=== PATIENT | female | born 2000 | race Caucasian/White ===

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

== ENCOUNTER 2019-08-05 13:14 | Inpatient (IN) | payer MEDICAID ==
[~2019-08-05] VITALS: Ht 160 cm; Wt 66.2 kg
[2019-08-05 18:46] VITALS: BP 126/69
[2019-08-05] MEDS ORDERED: IBUP-2271 PO (19:03)
[2019-08-05] MEDS ORDERED: HALO2 PO (19:03)
[2019-08-05 19:08] VITALS: BP 113/71
[2019-08-05] MEDS ORDERED: GuaiFENesin/D-METHORPHAN [SUGAR-FREE] 200-20MG/10 ML SYRUP UDCUP PO PRN (22:15)
[2019-08-05] MEDS ORDERED: ALBUTEROL SULFATE HFA 90 MCG/PUFF 8 GM INHALER IH PRN (22:15)
[2019-08-05] MEDS ORDERED: PETROLATUM,WHITE 28 GM JELLY TP PRN (22:15)
[2019-08-05] MEDS ORDERED: MAG HYDROX/AL HYDROX/SIMETH ES 30 ML SUSPENSION UDCUP PO PRN (22:15)
[2019-08-05] MEDS ORDERED: DOCUSATE SODIUM 100 MG CAPSULE PO PRN (22:15)
[2019-08-05] MEDS ORDERED: ACETAMINOPHEN 325 MG TABLET PO PRN (22:15)
[2019-08-05] MEDS ORDERED: ONDANSETRON HCL 4 MG TABLET PO PRN (22:15)
[2019-08-05] MEDS ORDERED: LOPERAMIDE HCL 2 MG CAPSULE PO PRN (22:15)
[2019-08-05] MEDS ORDERED: MAGNESIUM HYDROXIDE SUSPENSION 30 ML UDCUP PO PRN (22:15)
[2019-08-05] MEDS ORDERED: CloNIDine HCL 0.1 MG TABLET PO PRN (22:15)
[2019-08-06 01:25] VITALS: BP 145/92
[2019-08-06 08:02] LABS: BASOPHILS % (AUTO) 0.4 % (0.0-2.0); EOSINOPHILS % (AUTO) 4.1 % (1.0-6.0); HEMATOCRIT 32.6 % (36-46); HEMOGLOBIN 10.4 g/dL (12.0-16.0); LYMPHOCYTES # (AUTO) 2.1 K/uL (1.0-4.8); LYMPHOCYTES % (AUTO) 23.9 % (22.0-44.0); MEAN CORPUSCULAR HEMOGLOBIN 24.1 pg (26.0-34.0); MEAN CORPUSCULAR HGB CONC 31.9 G/dL (31.0-37.0); MEAN CORPUSCULAR VOLUME 76 fL (80-100); MONOCYTES # (AUTO) 0.6 K/uL (0.1-1.0); MONOCYTES % (AUTO) 7.1 % (2.0-9.0); NEUTROPHILS # (AUTO) 5.7 K/uL (1.8-7.7); NEUTROPHILS % (AUTO) 64.5 % (40.0-70.0); PLATELET COUNT (AUTO) 211 K/uL (150-450); RED BLOOD CELL COUNT(AUTO) 4.32 MIL/uL (4.00-5.20); RED CELL DISTRIBUTION WIDTH 19.2 % (11.5-14.5)
[2019-08-06 08:13] VITALS: BP 120/66
[2019-08-06 09:06] LABS: ALANINE AMINOTRANSFERASE 43 U/L (12-78); ALBUMIN 1.8 g/dL (3.4-5.0); ALKALINE PHOSPHATASE 183 U/L (46-116); ANION GAP 7 mmol/L (8-16); ASPARTATE AMINOTRANSFERASE 41 U/L (15-37); BILIRUBIN,TOTAL 0.2 mg/dL (0.1-1.0); CALCIUM, TOTAL 8.7 mg/dL (8.8-10.5); CARBON DIOXIDE 25 mmol/L (22-29); CHLORIDE 103 mmol/L (98-107); CHOL/HDL RATIO 2.8 (3.9-5.7); CHOLESTEROL 198 mg/dL (131-200); FREE T4 (FREE THYROXINE) 1.31 ng/dL (0.76-1.46); GLOMERULAR FILTR. RATE CALC > 60 mL/min (>60); GLUCOSE,RANDOM 73 mg/dL (70-110); HCG,QUANTITATIVE 1171 mIU/mL (0-6); HDL CHOLESTEROL 72 mg/dL (40-60); LDL CHOL (CALC.) 95 mg/dL (0-130); SODIUM SERUM 135 mmol/L (136-145); THYROID STIMULATING HORMONE 2.01 uIU/mL (0.36-3.74); TOTAL PROTEIN, SERUM 5.9 g/dL (6.4-8.2); TRIGLYCERIDES 155 mg/dL (15-150); UREA NITROGEN, BLOOD 7 mg/dL (7-18)
[2019-08-06] MEDS: OLANZapine 5 MG TABLET PO SCH ×2 (12:17→16:49)
[2019-08-06 16:04] VITALS: BP 121/73
[2019-08-07 05:33] VITALS: BP 120/64
[2019-08-07 08:15] VITALS: BP 125/65
[2019-08-07] MEDS: OLANZapine 5 MG TABLET PO SCH ×2 (08:57→16:32)
[2019-08-07 16:28] VITALS: BP 106/72
[2019-08-08 04:04] VITALS: BP 101/68
[2019-08-08] MEDS ORDERED: OLAN5TAB2 PO (06:24)
[2019-08-08 08:17] VITALS: BP 112/64
[2019-08-08] MEDS: OLANZapine 5 MG TABLET PO SCH ×2 (08:18→16:45)
[2019-08-08 16:34] VITALS: BP 116/70
[2019-08-09 05:20] VITALS: BP 105/68
[2019-08-09 08:11] VITALS: BP 120/69
[2019-08-09] MEDS: OLANZapine 5 MG TABLET PO SCH ×2 (08:44→17:23)
[2019-08-09 16:40] VITALS: BP 127/63
[2019-08-10 04:53] VITALS: BP 112/62
[2019-08-10] MEDS: OLANZapine 5 MG TABLET PO SCH ×2 (08:06→16:51)
[2019-08-10 08:17] VITALS: BP 114/71
[2019-08-10 16:08] VITALS: BP 119/64
[2019-08-11 05:14] VITALS: BP 101/62
[2019-08-11 08:07] VITALS: BP 118/66
[2019-08-11] MEDS: OLANZapine 5 MG TABLET PO SCH ×2 (08:49→16:47)
[2019-08-11] MEDS: LORazepam 2 MG TABLET PO PRN ×2 (15:10→20:52)
[2019-08-11 16:17] VITALS: BP 111/58
[2019-08-11] MEDS: ZOLPIDEM TARTRATE 10 MG TABLET PO PRN (20:03)
[2019-08-12 05:04] VITALS: BP 100/62
[2019-08-12 08:10] VITALS: BP 114/62
[2019-08-12] MEDS: OLANZapine 5 MG TABLET PO SCH ×2 (08:17→16:04)
[2019-08-12] MEDS: LORazepam 2 MG TABLET PO PRN (08:18)
[2019-08-12] MEDS ORDERED: HALOPERIDOL LACTATE 5 MG/ML VIAL IM ONE (10:45)
[2019-08-12] MEDS ORDERED: DiphenhydrAMINE HCL 50 MG/ML VIAL IM ONE (10:45)
[2019-08-12] MEDS ORDERED: LORazepam 2 MG/ML VIAL IM ONE (10:45)
[2019-08-12 14:00] VITALS: BP 100/68
[2019-08-13 05:30] VITALS: BP 104/66
[2019-08-13 08:09] LABS: APPEARANCE,URINE CLEAR (CLEAR); BILIRUBIN,URINE NEGATIVE (NEGATIVE); GLUCOSE, URINE (UA) NEGATIVE (NEGATIVE); KETONES,URINE NEGATIVE (NEGATIVE); LEUKOCYTE ESTERASE ,URINE NEGATIVE (NEGATIVE); NITRATE,URINE NEGATIVE (NEGATIVE); OCCULT BLOOD,URINE NEGATIVE (NEGATIVE); PROTEIN,URINE NEGATIVE (NEGATIVE)
[2019-08-13] MEDS: LORazepam 2 MG TABLET PO PRN (08:12)
[2019-08-13] MEDS: OLANZapine 5 MG TABLET PO SCH ×2 (08:12→16:30)
[2019-08-13 08:13] LABS: AMPHET/METH SCREEN,URINE NEGATIVE (NEGATIVE); BARBITURATE SCREEN, URINE NEGATIVE (NEGATIVE); BENZODIAZEPINES SCREEN,URINE NEGATIVE (NEGATIVE); CANNABINOID SCREEN,URINE NEGATIVE (NEGATIVE); COCAINE SCREEN,URINE NEGATIVE (NEGATIVE); METHADONE SCREEN, URINE NEGATIVE (NEGATIVE); OPIATE SCREEN,URINE NEGATIVE (NEGATIVE)
[2019-08-13 08:16] LABS: PHENCYCLIDINE SCREEN,URINE NEGATIVE (NEGATIVE)
[2019-08-13 08:18] VITALS: BP 117/88
[2019-08-13 16:03] VITALS: BP 130/59
[2019-08-14 05:20] VITALS: BP 115/66
[2019-08-14 08:02] VITALS: BP 121/66
[2019-08-14] MEDS: OLANZapine 5 MG TABLET PO SCH ×2 (08:09→16:44)
[2019-08-14 16:06] VITALS: BP 111/85
[2019-08-15] MEDS: ZOLPIDEM TARTRATE 10 MG TABLET PO PRN (02:47)
[2019-08-15 02:51] VITALS: BP 123/66
[2019-08-15] MEDS: OLANZapine 5 MG TABLET PO SCH ×2 (08:31→16:18)
[2019-08-15] MEDS: LORazepam 2 MG TABLET PO PRN ×2 (08:31→16:31)
[2019-08-15 08:35] VITALS: BP 126/56
[2019-08-15 16:14] VITALS: BP 110/64
[2019-08-16 08:10] VITALS: BP 111/60
[2019-08-16] MEDS: OLANZapine 5 MG TABLET PO SCH ×2 (08:37→16:21)
[2019-08-16 16:00] VITALS: BP 107/69
[2019-08-17 05:18] VITALS: BP 101/60
[2019-08-17 08:22] VITALS: BP 102/61
[2019-08-17] MEDS: OLANZapine 5 MG TABLET PO SCH ×2 (08:23→16:39)
[2019-08-17 11:00] VITALS: BP 110/74
[2019-08-17] MEDS: LORazepam 2 MG TABLET PO PRN (11:03)
[2019-08-17 16:44] VITALS: BP 109/60
[2019-08-17] MEDS: IBUPROFEN 400 MG TABLET PO PRN (17:32)
[2019-08-18 05:23] VITALS: BP 115/74
[2019-08-18 08:25] VITALS: BP 105/64
[2019-08-18] MEDS: OLANZapine 5 MG TABLET PO SCH ×2 (08:56→16:21)
[2019-08-18] MEDS: LORazepam 2 MG TABLET PO PRN (10:35)
[2019-08-18 16:28] VITALS: BP 111/57
[2019-08-19 06:19] VITALS: BP 108/62
[2019-08-19 08:03] VITALS: BP 109/54
[2019-08-19] MEDS: OLANZapine 5 MG TABLET PO SCH ×2 (08:26→18:10)
[2019-08-19 16:07] VITALS: BP 126/70
[2019-08-19] MEDS ORDERED: HALOPERIDOL LACTATE 5 MG/ML VIAL ONE (19:48)
[2019-08-19] MEDS ORDERED: LORazepam 2 MG/ML VIAL ONE (19:48)
[2019-08-19] MEDS ORDERED: DiphenhydrAMINE HCL 50 MG/ML VIAL ONE (19:48)
[2019-08-19] MEDS ORDERED: DiphenhydrAMINE HCL 50 MG/ML VIAL IM ONE (20:00)
[2019-08-19] MEDS ORDERED: HALOPERIDOL LACTATE 5 MG/ML VIAL IM ONE (20:00)
[2019-08-19] MEDS ORDERED: LORazepam 2 MG/ML VIAL IM ONE (20:00)
[2019-08-20 06:28] VITALS: BP 100/60
[2019-08-20 08:20] VITALS: BP 114/61
[2019-08-20] MEDS: LORazepam 2 MG TABLET PO PRN (08:41)
[2019-08-20] MEDS: OLANZapine 5 MG TABLET PO SCH ×2 (08:41→16:53)
[2019-08-20] MEDS: OMEGA-3/DHA/EPA/FISH OIL 1,000 MG CAPSULE PO SCH (14:11)
[2019-08-20 16:22] VITALS: BP_SYST 100; BP_SYST 114; BP_DIAS 61; BP_DIAS 65
[2019-08-21 05:01] VITALS: BP 100/63
[2019-08-21] MEDS: OLANZapine 5 MG TABLET PO SCH ×2 (08:16→16:17)
[2019-08-21] MEDS: OMEGA-3/DHA/EPA/FISH OIL 1,000 MG CAPSULE PO SCH (08:16)
[2019-08-21 08:23] VITALS: BP 106/63
[2019-08-21 09:25] VITALS: BP 114/72
[2019-08-21] MEDS: LORazepam 2 MG TABLET PO PRN (09:26)
[2019-08-21 16:24] VITALS: BP 105/65
[2019-08-22 04:10] VITALS: BP 101/60
[2019-08-22] MEDS: OMEGA-3/DHA/EPA/FISH OIL 1,000 MG CAPSULE PO SCH (08:11)
[2019-08-22] MEDS: OLANZapine 5 MG TABLET PO SCH ×2 (08:11→16:03)
[2019-08-22 08:23] VITALS: BP 121/61
[2019-08-22] MEDS: LORazepam 2 MG TABLET PO PRN (08:49)
[2019-08-22 16:00] VITALS: BP 103/61
[2019-08-23 05:16] VITALS: BP 100/65
[2019-08-23 08:09] VITALS: BP 112/77
[2019-08-23] MEDS: OLANZapine 5 MG TABLET PO SCH (08:11)
[2019-08-23] MEDS: OMEGA-3/DHA/EPA/FISH OIL 1,000 MG CAPSULE PO SCH (08:11)
[2019-08-23] MEDS: LORazepam 2 MG TABLET PO PRN ×2 (08:49→16:13)
[2019-08-23] MEDS: HALOPERIDOL 5 MG TABLET PO PRN (08:49)
[2019-08-23] MEDS ORDERED: HALOPERIDOL LACTATE 5 MG/ML VIAL IM ONE (09:00)
[2019-08-23] MEDS ORDERED: DiphenhydrAMINE HCL 50 MG/ML VIAL IM ONE (09:00)
[2019-08-23 09:37] VITALS: BP 106/80
[2019-08-23] MEDS: DIVALPROEX SODIUM 500 MG DR TABLET PO SCH (12:22)
[2019-08-23 16:02] VITALS: BP 119/63
[2019-08-23] MEDS: OLANZapine 10 MG TABLET PO SCH (16:13)
[2019-08-24 05:12] VITALS: BP 100/62
[2019-08-24 08:53] VITALS: BP 106/62
[2019-08-24] MEDS: LORazepam 2 MG TABLET PO PRN (09:19)
[2019-08-24] MEDS: OLANZapine 10 MG TABLET PO SCH ×2 (09:19→16:20)
[2019-08-24] MEDS: OMEGA-3/DHA/EPA/FISH OIL 1,000 MG CAPSULE PO SCH (09:19)
[2019-08-24] MEDS: DIVALPROEX SODIUM 500 MG DR TABLET PO SCH (09:19)
[2019-08-24 16:20] VITALS: BP 120/63
[2019-08-25 04:58] VITALS: BP 102/64
[2019-08-25 08:25] VITALS: BP 112/72
[2019-08-25] MEDS: OLANZapine 10 MG TABLET PO SCH ×2 (08:30→16:10)
[2019-08-25] MEDS: DIVALPROEX SODIUM 500 MG DR TABLET PO SCH (08:30)
[2019-08-25] MEDS: LORazepam 2 MG TABLET PO PRN (08:30)
[2019-08-25] MEDS: OMEGA-3/DHA/EPA/FISH OIL 1,000 MG CAPSULE PO SCH (08:30)
[2019-08-25] MEDS: HALOPERIDOL 5 MG TABLET PO PRN (09:07)
[2019-08-25 16:17] VITALS: BP 100/60
[2019-08-26 06:10] VITALS: BP 124/72
[2019-08-26] MEDS: OLANZapine 10 MG TABLET PO SCH ×2 (08:12→16:10)
[2019-08-26] MEDS: DIVALPROEX SODIUM 500 MG DR TABLET PO SCH (08:12)
[2019-08-26] MEDS: OMEGA-3/DHA/EPA/FISH OIL 1,000 MG CAPSULE PO SCH (08:12)
[2019-08-26 08:16] VITALS: BP 118/76
[2019-08-26] MEDS: LORazepam 2 MG TABLET PO PRN (12:16)
[2019-08-26 16:14] VITALS: BP 107/64
[2019-08-27 05:00] VITALS: BP 101/77
[2019-08-27 08:17] VITALS: BP 132/51
[2019-08-27] MEDS: OLANZapine 10 MG TABLET PO SCH ×2 (08:18→16:39)
[2019-08-27] MEDS: OMEGA-3/DHA/EPA/FISH OIL 1,000 MG CAPSULE PO SCH (08:18)
[2019-08-27] MEDS: DIVALPROEX SODIUM 500 MG DR TABLET PO SCH (08:18)
[2019-08-27] MEDS: LORazepam 2 MG TABLET PO PRN (08:19)
[2019-08-27] MEDS: HALOPERIDOL 5 MG TABLET PO PRN (08:34)
[2019-08-27] MEDS ORDERED: HALOPERIDOL LACTATE 5 MG/ML VIAL IM ONE (09:00)
[2019-08-27] MEDS ORDERED: DiphenhydrAMINE HCL 50 MG/ML VIAL IM ONE (09:00)
[2019-08-27 14:22] VITALS: BP 106/68
[2019-08-27 16:02] VITALS: BP 107/59
[2019-08-28 07:12] VITALS: BP 102/62
[2019-08-28] MEDS: OLANZapine 10 MG TABLET PO SCH ×2 (08:15→16:01)
[2019-08-28] MEDS: LORazepam 2 MG TABLET PO PRN ×3 (08:15→17:30)
[2019-08-28] MEDS: OMEGA-3/DHA/EPA/FISH OIL 1,000 MG CAPSULE PO SCH (08:15)
[2019-08-28] MEDS: DIVALPROEX SODIUM 500 MG DR TABLET PO SCH (08:16)
[2019-08-28] MEDS: NICOTINE 14 MG/24 HOUR PATCH TD PRN (08:56)
[2019-08-28 13:05] VITALS: BP 109/71
[2019-08-28 16:55] VITALS: BP 121/64
[2019-08-29 08:10] VITALS: BP 114/68
[2019-08-29] MEDS: LORazepam 2 MG TABLET PO PRN (08:20)
[2019-08-29] MEDS: DIVALPROEX SODIUM 500 MG DR TABLET PO SCH (08:20)
[2019-08-29] MEDS: NICOTINE 14 MG/24 HOUR PATCH TD PRN (08:20)
[2019-08-29] MEDS: OMEGA-3/DHA/EPA/FISH OIL 1,000 MG CAPSULE PO SCH (08:20)
[2019-08-29] MEDS: OLANZapine 10 MG TABLET PO SCH ×2 (08:20→16:12)
[2019-08-29] MEDS: HALOPERIDOL 5 MG TABLET PO PRN (09:03)
[2019-08-29 16:07] VITALS: BP 109/66
[2019-08-30 06:40] VITALS: BP 110/72
[2019-08-30 08:19] VITALS: BP 129/87
[2019-08-30] MEDS: DIVALPROEX SODIUM 500 MG DR TABLET PO SCH (08:26)
[2019-08-30] MEDS: OMEGA-3/DHA/EPA/FISH OIL 1,000 MG CAPSULE PO SCH (08:26)
[2019-08-30] MEDS: OLANZapine 10 MG TABLET PO SCH ×2 (08:26→16:58)
[2019-08-30] MEDS: LORazepam 2 MG TABLET PO PRN ×2 (08:26→16:58)
[2019-08-30] MEDS: HALOPERIDOL 5 MG TABLET PO PRN (09:28)
[2019-08-30 16:23] VITALS: BP 109/60
[2019-08-31 01:39] VITALS: BP 101/62
[2019-08-31] MEDS: OLANZapine 10 MG TABLET PO SCH ×2 (08:35→16:47)
[2019-08-31] MEDS: OMEGA-3/DHA/EPA/FISH OIL 1,000 MG CAPSULE PO SCH (08:35)
[2019-08-31] MEDS: LORazepam 2 MG TABLET PO PRN ×2 (08:35→18:04)
[2019-08-31] MEDS: DIVALPROEX SODIUM 500 MG DR TABLET PO SCH (08:35)
[2019-08-31 08:44] VITALS: BP 112/61
[2019-08-31] MEDS: HALOPERIDOL 5 MG TABLET PO PRN (09:01)
[2019-08-31 16:13] VITALS: BP 112/64
[2019-09-01 04:42] VITALS: BP 104/66
[2019-09-01 08:32] VITALS: BP 100/68
[2019-09-01] MEDS: OMEGA-3/DHA/EPA/FISH OIL 1,000 MG CAPSULE PO SCH (09:11)
[2019-09-01] MEDS: OLANZapine 10 MG TABLET PO SCH ×2 (09:11→16:45)
[2019-09-01] MEDS: LORazepam 2 MG TABLET PO PRN (09:11)
[2019-09-01] MEDS: DIVALPROEX SODIUM 500 MG DR TABLET PO SCH (09:11)
[2019-09-01 16:04] VITALS: BP 109/68
[2019-09-02 06:29] VITALS: BP 110/67
[2019-09-02] MEDS: OLANZapine 10 MG TABLET PO SCH ×2 (08:13→16:36)
[2019-09-02] MEDS: OMEGA-3/DHA/EPA/FISH OIL 1,000 MG CAPSULE PO SCH (08:13)
[2019-09-02] MEDS: DIVALPROEX SODIUM 500 MG DR TABLET PO SCH ×2 (08:13→21:00)
[2019-09-02] MEDS: LORazepam 2 MG TABLET PO PRN ×2 (08:14→16:36)
[2019-09-02 08:21] VITALS: BP 110/73
[2019-09-02 16:06] VITALS: BP 122/90
[2019-09-02] MEDS: HALOPERIDOL 5 MG TABLET PO PRN (16:36)
[2019-09-03 06:23] VITALS: BP 108/73
[2019-09-03] MEDS: DIVALPROEX SODIUM 500 MG DR TABLET PO SCH ×2 (08:08→20:56)
[2019-09-03] MEDS: HALOPERIDOL 5 MG TABLET PO PRN ×2 (08:08→16:26)
[2019-09-03] MEDS: LORazepam 2 MG TABLET PO PRN ×2 (08:08→16:26)
[2019-09-03] MEDS: OLANZapine 10 MG TABLET PO SCH ×2 (08:08→16:26)
[2019-09-03] MEDS: OMEGA-3/DHA/EPA/FISH OIL 1,000 MG CAPSULE PO SCH (08:08)
[2019-09-03 08:22] VITALS: BP 110/66
[2019-09-03 17:19] VITALS: BP 105/54
[2019-09-04 04:01] VITALS: BP 110/63
[2019-09-04] MEDS: LORazepam 2 MG TABLET PO PRN ×2 (07:59→16:26)
[2019-09-04] MEDS: OLANZapine 10 MG TABLET PO SCH ×2 (07:59→16:26)
[2019-09-04] MEDS: DIVALPROEX SODIUM 500 MG DR TABLET PO SCH ×2 (07:59→20:29)
[2019-09-04] MEDS: OMEGA-3/DHA/EPA/FISH OIL 1,000 MG CAPSULE PO SCH (08:00)
[2019-09-04] MEDS: HALOPERIDOL 5 MG TABLET PO PRN (08:42)
[2019-09-04 16:13] VITALS: BP 115/72
[2019-09-05 06:44] VITALS: BP 110/65
[2019-09-05 08:16] VITALS: BP 112/66
[2019-09-05] MEDS: OMEGA-3/DHA/EPA/FISH OIL 1,000 MG CAPSULE PO SCH (08:31)
[2019-09-05] MEDS: DIVALPROEX SODIUM 500 MG DR TABLET PO SCH ×2 (08:31→21:12)
[2019-09-05] MEDS: HALOPERIDOL 5 MG TABLET PO PRN ×2 (08:31→17:01)
[2019-09-05] MEDS: LORazepam 2 MG TABLET PO PRN ×2 (08:31→17:01)
[2019-09-05] MEDS: OLANZapine 10 MG TABLET PO SCH ×2 (08:31→17:01)
[2019-09-05 17:07] VITALS: BP 90/59
[2019-09-05 18:00] VITALS: BP 100/61
[2019-09-06 03:15] VITALS: BP 112/66
[2019-09-06 08:17] VITALS: BP 105/55
[2019-09-06] MEDS: OMEGA-3/DHA/EPA/FISH OIL 1,000 MG CAPSULE PO SCH (08:58)
[2019-09-06] MEDS: DIVALPROEX SODIUM 500 MG DR TABLET PO SCH ×2 (08:58→20:33)
[2019-09-06] MEDS: OLANZapine 10 MG TABLET PO SCH ×2 (08:58→16:44)
[2019-09-06] MEDS: LORazepam 2 MG TABLET PO PRN (09:03)
[2019-09-06 17:49] VITALS: BP 115/66
[2019-09-07 04:04] VITALS: BP 110/76
[2019-09-07 08:24] VITALS: BP 106/71
[2019-09-07] MEDS: DIVALPROEX SODIUM 500 MG DR TABLET PO SCH ×2 (08:31→21:41)
[2019-09-07] MEDS: LORazepam 2 MG TABLET PO PRN (08:31)
[2019-09-07] MEDS: OMEGA-3/DHA/EPA/FISH OIL 1,000 MG CAPSULE PO SCH (08:31)
[2019-09-07] MEDS: OLANZapine 10 MG TABLET PO SCH ×2 (08:31→17:10)
[2019-09-07 20:24] VITALS: BP 93/42
[2019-09-08 04:33] VITALS: BP 102/76
[2019-09-08 08:30] VITALS: BP 112/66
[2019-09-08] MEDS: OMEGA-3/DHA/EPA/FISH OIL 1,000 MG CAPSULE PO SCH (09:20)
[2019-09-08] MEDS: OLANZapine 10 MG TABLET PO SCH ×2 (09:20→16:42)
[2019-09-08] MEDS: DIVALPROEX SODIUM 500 MG DR TABLET PO SCH ×2 (09:21→20:45)
[2019-09-08] MEDS: LORazepam 2 MG TABLET PO PRN ×2 (09:21→16:43)
[2019-09-08] MEDS: HALOPERIDOL 5 MG TABLET PO PRN ×2 (10:20→16:42)
[2019-09-08 17:49] VITALS: BP 112/67
[2019-09-09 04:22] VITALS: BP 102/63
[2019-09-09 08:28] VITALS: BP 100/57
[2019-09-09] MEDS: DIVALPROEX SODIUM 500 MG DR TABLET PO SCH ×2 (08:38→20:19)
[2019-09-09] MEDS: LORazepam 2 MG TABLET PO PRN ×2 (08:38→17:31)
[2019-09-09] MEDS: OLANZapine 10 MG TABLET PO SCH ×2 (08:38→17:31)
[2019-09-09] MEDS: HALOPERIDOL 5 MG TABLET PO PRN ×2 (08:38→17:31)
[2019-09-09] MEDS: OMEGA-3/DHA/EPA/FISH OIL 1,000 MG CAPSULE PO SCH (08:38)
[2019-09-09 16:11] VITALS: BP 117/61
[2019-09-10 02:00] VITALS: BP 108/72
[2019-09-10 08:30] VITALS: BP 100/61
[2019-09-10] MEDS: OMEGA-3/DHA/EPA/FISH OIL 1,000 MG CAPSULE PO SCH (09:45)
[2019-09-10] MEDS: DIVALPROEX SODIUM 500 MG DR TABLET PO SCH ×2 (09:45→21:12)
[2019-09-10] MEDS: OLANZapine 10 MG TABLET PO SCH ×2 (09:45→17:00)
[2019-09-10] MEDS: HALOPERIDOL 5 MG TABLET PO PRN (09:47)
[2019-09-10 17:48] VITALS: BP 106/56
[2019-09-11 04:45] VITALS: BP 16/64
[2019-09-11] MEDS: OLANZapine 10 MG TABLET PO SCH ×2 (08:05→15:53)
[2019-09-11] MEDS: OMEGA-3/DHA/EPA/FISH OIL 1,000 MG CAPSULE PO SCH (08:05)
[2019-09-11] MEDS: DIVALPROEX SODIUM 500 MG DR TABLET PO SCH ×2 (08:06→20:38)
[2019-09-11] MEDS: LORazepam 2 MG TABLET PO PRN ×2 (08:06→15:53)
[2019-09-11] MEDS: HALOPERIDOL 5 MG TABLET PO PRN ×2 (08:06→15:53)
[2019-09-11 08:37] VITALS: BP 109/67
[2019-09-11 17:08] VITALS: BP 104/64
[2019-09-12 04:47] VITALS: BP 101/75
[2019-09-12] MEDS: OLANZapine 10 MG TABLET PO SCH ×2 (08:41→16:13)
[2019-09-12] MEDS: OMEGA-3/DHA/EPA/FISH OIL 1,000 MG CAPSULE PO SCH (08:41)
[2019-09-12] MEDS: DIVALPROEX SODIUM 500 MG DR TABLET PO SCH ×2 (08:41→21:04)
[2019-09-12 09:51] VITALS: BP 109/63
[2019-09-12 16:06] VITALS: BP 116/66
[2019-09-12] MEDS: LORazepam 2 MG TABLET PO PRN (16:13)
[2019-09-12] MEDS: HALOPERIDOL 5 MG TABLET PO PRN (16:13)
[2019-09-13 05:49] VITALS: BP 101/56
[2019-09-13 08:14] VITALS: BP 104/67
[2019-09-13] MEDS: OLANZapine 10 MG TABLET PO SCH ×2 (08:38→17:48)
[2019-09-13] MEDS: OMEGA-3/DHA/EPA/FISH OIL 1,000 MG CAPSULE PO SCH (08:38)
[2019-09-13] MEDS: HALOPERIDOL 5 MG TABLET PO PRN ×2 (08:38→17:49)
[2019-09-13] MEDS: DIVALPROEX SODIUM 500 MG DR TABLET PO SCH ×2 (08:38→20:17)
[2019-09-13] MEDS: LORazepam 2 MG TABLET PO PRN ×2 (08:39→17:49)
[2019-09-13 16:29] VITALS: BP 111/72
[2019-09-14 03:05] VITALS: BP 100/75
[2019-09-14 08:05] VITALS: BP 110/66
[2019-09-14] MEDS: DIVALPROEX SODIUM 500 MG DR TABLET PO SCH ×2 (09:08→20:19)
[2019-09-14] MEDS: OLANZapine 10 MG TABLET PO SCH ×2 (09:09→16:18)
[2019-09-14] MEDS: OMEGA-3/DHA/EPA/FISH OIL 1,000 MG CAPSULE PO SCH (09:09)
[2019-09-14] MEDS: HALOPERIDOL 5 MG TABLET PO PRN (09:09)
[2019-09-14] MEDS: LORazepam 2 MG TABLET PO PRN (09:09)
[2019-09-14 17:31] VITALS: BP 106/61
[2019-09-15 03:14] VITALS: BP 87/72
[2019-09-15] MEDS: DIVALPROEX SODIUM 500 MG DR TABLET PO SCH ×2 (08:02→20:19)
[2019-09-15] MEDS: OLANZapine 10 MG TABLET PO SCH ×2 (08:03→16:54)
[2019-09-15] MEDS: OMEGA-3/DHA/EPA/FISH OIL 1,000 MG CAPSULE PO SCH (08:03)
[2019-09-15] MEDS: ACETAMINOPHEN 325 MG TABLET PO PRN (08:04)
[2019-09-15 08:15] VITALS: BP 103/66
[2019-09-15 16:00] VITALS: BP 118/75
[2019-09-15] MEDS: HALOPERIDOL 5 MG TABLET PO PRN (17:55)
[2019-09-16 08:15] VITALS: BP 129/70
[2019-09-16] MEDS: DIVALPROEX SODIUM 500 MG DR TABLET PO SCH ×2 (08:24→20:18)
[2019-09-16] MEDS: OLANZapine 10 MG TABLET PO SCH ×2 (08:24→16:23)
[2019-09-16] MEDS: OMEGA-3/DHA/EPA/FISH OIL 1,000 MG CAPSULE PO SCH (08:24)
[2019-09-16 16:19] VITALS: BP 113/56
[2019-09-16] MEDS: IBUPROFEN 400 MG TABLET PO PRN (17:17)
[2019-09-16 17:18] VITALS: BP 120/72
[2019-09-17 05:19] VITALS: BP 108/72
[2019-09-17] MEDS: HALOPERIDOL 5 MG TABLET PO PRN ×2 (07:55→17:18)
[2019-09-17 08:09] VITALS: BP 101/63
[2019-09-17] MEDS: DIVALPROEX SODIUM 500 MG DR TABLET PO SCH ×2 (08:13→20:38)
[2019-09-17] MEDS: OMEGA-3/DHA/EPA/FISH OIL 1,000 MG CAPSULE PO SCH (08:13)
[2019-09-17] MEDS: OLANZapine 10 MG TABLET PO SCH ×2 (08:13→16:09)
[2019-09-17] MEDS: ACETAMINOPHEN 325 MG TABLET PO PRN (11:05)
[2019-09-17 16:10] VITALS: BP 125/92
[2019-09-17] MEDS ORDERED: LORazepam 2 MG TABLET PO ONE (18:15)
[2019-09-17] MEDS ORDERED: LORazepam 2 MG TABLET ONE (18:16)
[2019-09-18 01:15] VITALS: BP 112/76
[2019-09-18] MEDS: OMEGA-3/DHA/EPA/FISH OIL 1,000 MG CAPSULE PO SCH (08:12)
[2019-09-18] MEDS: DIVALPROEX SODIUM 500 MG DR TABLET PO SCH ×2 (08:12→20:44)
[2019-09-18] MEDS: OLANZapine 10 MG TABLET PO SCH ×2 (08:12→16:20)
[2019-09-18 08:15] VITALS: BP 102/56
[2019-09-18 17:08] VITALS: BP 118/69
[2019-09-18] MEDS: HALOPERIDOL 5 MG TABLET PO PRN (17:34)
[2019-09-19 04:39] VITALS: BP 105/62
[2019-09-19 08:18] VITALS: BP 112/63
[2019-09-19] MEDS: DIVALPROEX SODIUM 500 MG DR TABLET PO SCH (08:46)
[2019-09-19] MEDS: HALOPERIDOL 5 MG TABLET PO PRN (08:46)
[2019-09-19] MEDS: OMEGA-3/DHA/EPA/FISH OIL 1,000 MG CAPSULE PO SCH (08:46)
[2019-09-19] MEDS: OLANZapine 10 MG TABLET PO SCH (08:47)
[2019-09-19] MEDS ORDERED: DIVA-78 PO (14:35)
[2019-09-19] MEDS ORDERED: OMEG-135 PO (14:35)
[2019-09-19] MEDS ORDERED: OLAN10TA3 PO (14:35)
== END 2019-09-19 15:59 | disposition home or self-care (01) | DRG 750 ==
LOC: B3A 18:03
PROVIDERS: ADMIT Psychiatry & Neurology Psychiatry; ATTEND Psychiatry & Neurology Child & Adolescent Psychiatry
DX: F25.0 Schizoaffective disorder, bipolar type (principal); E87.1 Hypo-osmolality and hyponatremia; E78.5 Hyperlipidemia, unspecified; F10.10 Alcohol abuse, uncomplicated; G40.909 Epilepsy, unspecified, not intractable, without status epilepticus; Z91.19 Patient's noncompliance with other medical treatment and regimen; Z91.5 Personal history of self-harm
CPT/HCPCS: 80307; 83036; 84439; 84443; 87081; J1200; J1630; J2060

== ENCOUNTER 2019-10-01 03:00 | Inpatient (IN) | payer MEDICAID ==
[~2019-10-01 03:00] MED LIST: DIVA-78 PO; OLAN10TA3 PO; OMEG-135 PO
[2019-10-01] MEDS ORDERED: DiphenhydrAMINE HCL 50 MG/ML VIAL ONE ×2 (03:27→04:29)
[2019-10-01] MEDS ORDERED: HALOPERIDOL LACTATE 5 MG/ML VIAL ONE ×2 (03:27→04:29)
[2019-10-01] MEDS ORDERED: LORazepam 2 MG/ML VIAL ONE (03:28)
[2019-10-01] MEDS ORDERED: DiphenhydrAMINE HCL 50 MG/ML VIAL IM ONE ×2 (04:15→06:00)
[2019-10-01] MEDS ORDERED: HALOPERIDOL LACTATE 5 MG/ML VIAL IM ONE ×2 (04:15→04:30)
[2019-10-01] MEDS ORDERED: LORazepam 2 MG/ML VIAL IM ONE (04:15)
[2019-10-01] MEDS ORDERED: HALOPERIDOL LACTATE 5 MG/ML VIAL IVP ONE (06:00)
[2019-10-01 08:03] VITALS: BP 110/62
[2019-10-01] MEDS ORDERED: CloNIDine HCL 0.1 MG TABLET PO PRN (09:00)
[2019-10-01] MEDS ORDERED: GuaiFENesin/D-METHORPHAN [SUGAR-FREE] 200-20MG/10 ML SYRUP UDCUP PO PRN (09:00)
[2019-10-01] MEDS ORDERED: ACETAMINOPHEN 325 MG TABLET PO PRN (09:00)
[2019-10-01] MEDS ORDERED: DOCUSATE SODIUM 100 MG CAPSULE PO PRN (09:00)
[2019-10-01] MEDS ORDERED: IBUPROFEN 400 MG TABLET PO PRN (09:00)
[2019-10-01] MEDS ORDERED: MAG HYDROX/AL HYDROX/SIMETH ES 30 ML SUSPENSION UDCUP PO PRN (09:00)
[2019-10-01] MEDS ORDERED: PETROLATUM,WHITE 28 GM JELLY TP PRN (09:00)
[2019-10-01] MEDS ORDERED: LOPERAMIDE HCL 2 MG CAPSULE PO PRN (09:00)
[2019-10-01] MEDS ORDERED: MAGNESIUM HYDROXIDE SUSPENSION 30 ML UDCUP PO PRN (09:00)
[2019-10-01] MEDS ORDERED: ALBUTEROL SULFATE HFA 90 MCG/PUFF 8 GM INHALER IH PRN (09:00)
[2019-10-01] MEDS ORDERED: ONDANSETRON HCL 4 MG TABLET PO PRN (09:00)
[2019-10-01] MEDS: OMEGA-3/DHA/EPA/FISH OIL 1,000 MG CAPSULE PO SCH (09:22)
[2019-10-01] MEDS: OLANZapine 10 MG TABLET PO SCH ×2 (12:35→16:39)
[2019-10-01] MEDS: DIVALPROEX SODIUM 500 MG ER TABLET PO SCH ×2 (12:36→16:39)
[2019-10-01 18:52] VITALS: BP 97/57
[2019-10-02 03:13] VITALS: BP 101/62
[2019-10-02 08:14] VITALS: BP 112/69
[2019-10-02] MEDS: OMEGA-3/DHA/EPA/FISH OIL 1,000 MG CAPSULE PO SCH (08:46)
[2019-10-02] MEDS: OLANZapine 10 MG TABLET PO SCH ×2 (08:46→16:15)
[2019-10-02] MEDS: DIVALPROEX SODIUM 500 MG ER TABLET PO SCH ×2 (08:46→16:15)
[2019-10-02 16:05] VITALS: BP 106/75
[2019-10-03 04:59] VITALS: BP 99/50
[2019-10-03 08:12] VITALS: BP 109/71
[2019-10-03] MEDS: DIVALPROEX SODIUM 500 MG ER TABLET PO SCH ×2 (08:56→16:39)
[2019-10-03] MEDS: OLANZapine 10 MG TABLET PO SCH ×2 (08:56→16:39)
[2019-10-03] MEDS: OMEGA-3/DHA/EPA/FISH OIL 1,000 MG CAPSULE PO SCH (08:56)
[2019-10-04 02:25] VITALS: BP 100/65
[2019-10-04 08:00] VITALS: BP 101/64
[2019-10-04] MEDS: DIVALPROEX SODIUM 500 MG ER TABLET PO SCH ×2 (08:31→16:24)
[2019-10-04] MEDS: OMEGA-3/DHA/EPA/FISH OIL 1,000 MG CAPSULE PO SCH (08:31)
[2019-10-04] MEDS: OLANZapine 10 MG TABLET PO SCH ×2 (08:31→16:24)
[2019-10-04] MEDS: LORazepam 2 MG TABLET PO PRN (19:13)
[2019-10-04] MEDS: HALOPERIDOL 5 MG TABLET PO PRN (19:13)
[2019-10-04 21:29] VITALS: BP 100/60
[2019-10-05 02:36] VITALS: BP 101/63
[2019-10-05] MEDS: DIVALPROEX SODIUM 500 MG ER TABLET PO SCH ×2 (08:28→17:07)
[2019-10-05] MEDS: OLANZapine 10 MG TABLET PO SCH ×2 (08:28→17:07)
[2019-10-05] MEDS: OMEGA-3/DHA/EPA/FISH OIL 1,000 MG CAPSULE PO SCH (08:28)
[2019-10-05] MEDS: HALOPERIDOL 5 MG TABLET PO PRN (08:29)
[2019-10-05] MEDS: LORazepam 2 MG TABLET PO PRN (08:29)
[2019-10-05 16:14] VITALS: BP 104/71
[2019-10-06 03:49] VITALS: BP 100/73
[2019-10-06] MEDS: OLANZapine 10 MG TABLET PO SCH ×2 (08:23→17:03)
[2019-10-06] MEDS: OMEGA-3/DHA/EPA/FISH OIL 1,000 MG CAPSULE PO SCH (08:23)
[2019-10-06] MEDS: DIVALPROEX SODIUM 500 MG ER TABLET PO SCH ×2 (08:23→17:03)
[2019-10-06 13:04] VITALS: BP 100/60
[2019-10-06 16:01] VITALS: BP 98/50
[2019-10-07 02:43] VITALS: BP_SYST 101; BP_SYST 88; BP_DIAS 63
[2019-10-07] MEDS: DIVALPROEX SODIUM 500 MG ER TABLET PO SCH ×2 (08:10→16:20)
[2019-10-07] MEDS: OLANZapine 10 MG TABLET PO SCH ×2 (08:11→16:20)
[2019-10-07] MEDS: OMEGA-3/DHA/EPA/FISH OIL 1,000 MG CAPSULE PO SCH (08:11)
[2019-10-07 17:55] VITALS: BP 105/52
[2019-10-08 03:05] VITALS: BP 100/63
[2019-10-08 08:20] VITALS: BP 106/62
[2019-10-08] MEDS: DIVALPROEX SODIUM 500 MG ER TABLET PO SCH ×2 (08:27→16:23)
[2019-10-08] MEDS: OLANZapine 10 MG TABLET PO SCH ×2 (08:28→16:23)
[2019-10-08] MEDS: OMEGA-3/DHA/EPA/FISH OIL 1,000 MG CAPSULE PO SCH (08:28)
[2019-10-08 16:02] VITALS: BP 100/60
[2019-10-09 05:23] VITALS: BP 102/62
[2019-10-09] MEDS: DIVALPROEX SODIUM 500 MG ER TABLET PO SCH ×2 (08:38→16:52)
[2019-10-09] MEDS: OLANZapine 10 MG TABLET PO SCH ×2 (08:38→16:52)
[2019-10-09] MEDS: OMEGA-3/DHA/EPA/FISH OIL 1,000 MG CAPSULE PO SCH (08:38)
[2019-10-09 09:07] VITALS: BP 107/58
[2019-10-09 16:34] VITALS: BP 105/60
[2019-10-09] MEDS: LORazepam 2 MG TABLET PO PRN (16:52)
[2019-10-10 01:52] VITALS: BP 101/60
[2019-10-10 08:16] VITALS: BP 120/81
[2019-10-10] MEDS: OLANZapine 10 MG TABLET PO SCH ×2 (08:21→16:15)
[2019-10-10] MEDS: DIVALPROEX SODIUM 500 MG ER TABLET PO SCH ×2 (08:21→16:15)
[2019-10-10] MEDS: OMEGA-3/DHA/EPA/FISH OIL 1,000 MG CAPSULE PO SCH (08:21)
[2019-10-10] MEDS: LORazepam 2 MG TABLET PO PRN (10:35)
[2019-10-10 16:01] VITALS: BP 103/62
[2019-10-10] MEDS: NICOTINE 14 MG/24 HOUR PATCH TD PRN (17:05)
[2019-10-10] MEDS: ZOLPIDEM TARTRATE 10 MG TABLET PO PRN (23:58)
[2019-10-11 01:46] VITALS: BP 127/80
[2019-10-11 08:25] VITALS: BP 107/60
[2019-10-11] MEDS: OMEGA-3/DHA/EPA/FISH OIL 1,000 MG CAPSULE PO SCH (08:29)
[2019-10-11] MEDS: DIVALPROEX SODIUM 500 MG ER TABLET PO SCH ×2 (08:29→16:05)
[2019-10-11] MEDS: OLANZapine 10 MG TABLET PO SCH ×2 (08:29→16:05)
[2019-10-11] MEDS: LORazepam 2 MG TABLET PO PRN ×2 (10:25→16:06)
[2019-10-11 16:08] VITALS: BP 110/67
[2019-10-11] MEDS: FluPHENAZine HCL 5 MG TABLET PO SCH (17:02)
[2019-10-12 03:01] VITALS: BP 100/75
[2019-10-12] MEDS: OLANZapine 10 MG TABLET PO SCH ×2 (08:27→17:02)
[2019-10-12] MEDS: FluPHENAZine HCL 5 MG TABLET PO SCH ×2 (08:27→17:02)
[2019-10-12] MEDS: OMEGA-3/DHA/EPA/FISH OIL 1,000 MG CAPSULE PO SCH (08:27)
[2019-10-12] MEDS: DIVALPROEX SODIUM 500 MG ER TABLET PO SCH ×2 (08:27→17:02)
[2019-10-12 16:03] VITALS: BP 126/64
[2019-10-12] MEDS ORDERED: FLUP5 PO (19:49)
[2019-10-12] MEDS: ZOLPIDEM TARTRATE 10 MG TABLET PO PRN (20:50)
[2019-10-13 02:10] VITALS: BP 122/66
[2019-10-13 08:06] VITALS: BP 114/63
[2019-10-13] MEDS: OLANZapine 10 MG TABLET PO SCH ×2 (08:06→17:04)
[2019-10-13] MEDS: DIVALPROEX SODIUM 500 MG ER TABLET PO SCH ×2 (08:06→17:04)
[2019-10-13] MEDS: OMEGA-3/DHA/EPA/FISH OIL 1,000 MG CAPSULE PO SCH (08:06)
[2019-10-13] MEDS: FluPHENAZine HCL 5 MG TABLET PO SCH ×2 (08:06→17:04)
[2019-10-13 16:11] VITALS: BP 102/66
[2019-10-14 00:31] VITALS: BP 113/92
[2019-10-14] MEDS: OLANZapine 10 MG TABLET PO SCH ×2 (08:00→17:06)
[2019-10-14] MEDS: FluPHENAZine HCL 5 MG TABLET PO SCH ×2 (08:00→17:06)
[2019-10-14] MEDS: DIVALPROEX SODIUM 500 MG ER TABLET PO SCH ×2 (08:01→17:06)
[2019-10-14] MEDS: OMEGA-3/DHA/EPA/FISH OIL 1,000 MG CAPSULE PO SCH (08:01)
[2019-10-14 08:05] VITALS: BP 124/62
[2019-10-14 08:15] LABS: BASOPHILS % (AUTO) 0.6 % (0.0-2.0); EOSINOPHILS % (AUTO) 3.8 % (1.0-6.0); HEMATOCRIT 36.6 % (36-46); HEMOGLOBIN 11.7 g/dL (12.0-16.0); LYMPHOCYTES # (AUTO) 2.3 K/uL (1.0-4.8); LYMPHOCYTES % (AUTO) 39.1 % (22.0-44.0); MEAN CORPUSCULAR HEMOGLOBIN 25.8 pg (26.0-34.0); MEAN CORPUSCULAR HGB CONC 32.1 G/dL (31.0-37.0); MEAN CORPUSCULAR VOLUME 80 fL (80-100); MONOCYTES # (AUTO) 0.5 K/uL (0.1-1.0); MONOCYTES % (AUTO) 8.4 % (2.0-9.0); NEUTROPHILS # (AUTO) 2.9 K/uL (1.8-7.7); NEUTROPHILS % (AUTO) 48.1 % (40.0-70.0); PLATELET COUNT (AUTO) 188 K/uL (150-450); RED BLOOD CELL COUNT(AUTO) 4.56 MIL/uL (4.00-5.20); RED CELL DISTRIBUTION WIDTH 18.5 % (11.5-14.5)
[2019-10-14 08:35] LABS: HEMOGLOBIN A1C 4.3 % (3.8-5.6)
[2019-10-14 08:45] LABS: ALANINE AMINOTRANSFERASE 35 U/L (12-78); ALBUMIN 3.1 g/dL (3.4-5.0); ALKALINE PHOSPHATASE 106 U/L (46-116); ANION GAP 12 mmol/L (8-16); ASPARTATE AMINOTRANSFERASE 19 U/L (15-37); BILIRUBIN,TOTAL 0.2 mg/dL (0.1-1.0); CARBON DIOXIDE 23 mmol/L (22-29); CHLORIDE 105 mmol/L (98-107); CHOL/HDL RATIO 3.3 (3.9-5.7); CHOLESTEROL 154 mg/dL (131-200); CREATININE 0.63 mg/dL (0.60-1.30); GLOMERULAR FILTR. RATE CALC > 60 mL/min (>60); GLUCOSE,RANDOM 73 mg/dL (70-110); HDL CHOLESTEROL 47 mg/dL (40-60); LDL CHOL (CALC.) 83 mg/dL (0-130); POTASSIUM 4.3 mmol/L (3.5-5.1); SODIUM SERUM 140 mmol/L (136-145); THYROID STIMULATING HORMONE 1.71 uIU/mL (0.36-3.74); TOTAL PROTEIN, SERUM 6.8 g/dL (6.4-8.2); TRIGLYCERIDES 122 mg/dL (15-150); UREA NITROGEN, BLOOD 17 mg/dL (7-18)
[2019-10-14 16:31] VITALS: BP 120/58
[2019-10-15 06:55] VITALS: BP 119/64
[2019-10-15 08:07] VITALS: BP 100/61
[2019-10-15] MEDS: OLANZapine 10 MG TABLET PO SCH ×2 (08:21→16:57)
[2019-10-15] MEDS: OMEGA-3/DHA/EPA/FISH OIL 1,000 MG CAPSULE PO SCH (08:21)
[2019-10-15] MEDS: DIVALPROEX SODIUM 500 MG ER TABLET PO SCH ×2 (08:21→16:57)
[2019-10-15] MEDS: FluPHENAZine HCL 5 MG TABLET PO SCH ×2 (08:21→16:57)
[2019-10-15 16:26] VITALS: BP 107/67
[2019-10-16 03:23] VITALS: BP 100/62
[2019-10-16 08:14] VITALS: BP 106/71
[2019-10-16] MEDS: OLANZapine 10 MG TABLET PO SCH ×2 (08:15→16:23)
[2019-10-16] MEDS: FluPHENAZine HCL 5 MG TABLET PO SCH ×2 (08:15→16:23)
[2019-10-16] MEDS: OMEGA-3/DHA/EPA/FISH OIL 1,000 MG CAPSULE PO SCH (08:15)
[2019-10-16] MEDS: DIVALPROEX SODIUM 500 MG ER TABLET PO SCH ×2 (08:15→16:23)
[2019-10-16 16:33] VITALS: BP 101/60
[2019-10-16] MEDS: LORazepam 2 MG TABLET PO PRN (17:21)
[2019-10-17 04:07] VITALS: BP 120/63
[2019-10-17] MEDS: OLANZapine 10 MG TABLET PO SCH ×2 (08:16→16:34)
[2019-10-17] MEDS: FluPHENAZine HCL 5 MG TABLET PO SCH ×2 (08:16→16:34)
[2019-10-17] MEDS: OMEGA-3/DHA/EPA/FISH OIL 1,000 MG CAPSULE PO SCH (08:16)
[2019-10-17] MEDS: DIVALPROEX SODIUM 500 MG ER TABLET PO SCH ×2 (08:16→16:34)
[2019-10-17 08:24] VITALS: BP 109/64
[2019-10-17 16:11] VITALS: BP 116/71
[2019-10-18 04:08] VITALS: BP 106/71
[2019-10-18] MEDS: DIVALPROEX SODIUM 500 MG ER TABLET PO SCH ×2 (08:19→16:24)
[2019-10-18] MEDS: OLANZapine 10 MG TABLET PO SCH ×2 (08:19→16:24)
[2019-10-18] MEDS: OMEGA-3/DHA/EPA/FISH OIL 1,000 MG CAPSULE PO SCH (08:19)
[2019-10-18] MEDS: FluPHENAZine HCL 5 MG TABLET PO SCH ×2 (08:19→16:24)
[2019-10-18 08:49] VITALS: BP 111/52
[2019-10-18 16:15] VITALS: BP 105/60
[2019-10-19 05:53] VITALS: BP 108/64
[2019-10-19 08:00] VITALS: BP 101/60
[2019-10-19] MEDS: OMEGA-3/DHA/EPA/FISH OIL 1,000 MG CAPSULE PO SCH (08:21)
[2019-10-19] MEDS: FluPHENAZine HCL 5 MG TABLET PO SCH ×2 (08:21→16:18)
[2019-10-19] MEDS: OLANZapine 10 MG TABLET PO SCH ×2 (08:21→16:18)
[2019-10-19] MEDS: DIVALPROEX SODIUM 500 MG ER TABLET PO SCH ×2 (08:21→16:18)
[2019-10-19] MEDS: LORazepam 2 MG TABLET PO PRN (13:31)
[2019-10-19 19:36] VITALS: BP 105/63
[2019-10-20 03:26] VITALS: BP 110/72
[2019-10-20] MEDS: OLANZapine 10 MG TABLET PO SCH ×2 (08:18→16:43)
[2019-10-20] MEDS: DIVALPROEX SODIUM 500 MG ER TABLET PO SCH ×2 (08:18→16:43)
[2019-10-20] MEDS: OMEGA-3/DHA/EPA/FISH OIL 1,000 MG CAPSULE PO SCH (08:18)
[2019-10-20] MEDS: FluPHENAZine HCL 5 MG TABLET PO SCH ×2 (08:18→16:43)
[2019-10-20 08:26] VITALS: BP 116/72
[2019-10-20 16:16] VITALS: BP 106/65
[2019-10-21 01:48] VITALS: BP 102/68
[2019-10-21] MEDS: OLANZapine 10 MG TABLET PO SCH ×2 (08:13→17:25)
[2019-10-21] MEDS: DIVALPROEX SODIUM 500 MG ER TABLET PO SCH ×2 (08:13→17:25)
[2019-10-21] MEDS: FluPHENAZine HCL 5 MG TABLET PO SCH ×2 (08:13→17:25)
[2019-10-21] MEDS: OMEGA-3/DHA/EPA/FISH OIL 1,000 MG CAPSULE PO SCH (08:13)
[2019-10-21 16:29] VITALS: BP 107/65
[2019-10-22 03:59] VITALS: BP 102/68
[2019-10-22] MEDS: DIVALPROEX SODIUM 500 MG ER TABLET PO SCH ×2 (08:30→16:34)
[2019-10-22] MEDS: FluPHENAZine HCL 5 MG TABLET PO SCH (08:30)
[2019-10-22] MEDS: OMEGA-3/DHA/EPA/FISH OIL 1,000 MG CAPSULE PO SCH (08:30)
[2019-10-22] MEDS: OLANZapine 10 MG TABLET PO SCH ×2 (08:30→16:34)
[2019-10-22 08:48] VITALS: BP 119/74
[2019-10-22 16:27] VITALS: BP 104/65
[2019-10-22] MEDS: FluPHENAZine HCL 10 MG TABLET PO SCH (16:34)
[2019-10-22 18:03] VITALS: BP 106/68
[2019-10-23 04:37] VITALS: BP 108/63
[2019-10-23 08:23] VITALS: BP 111/76
[2019-10-23] MEDS: OMEGA-3/DHA/EPA/FISH OIL 1,000 MG CAPSULE PO SCH (08:44)
[2019-10-23] MEDS: FluPHENAZine HCL 10 MG TABLET PO SCH ×2 (08:44→17:01)
[2019-10-23] MEDS: DIVALPROEX SODIUM 500 MG ER TABLET PO SCH ×2 (08:44→17:01)
[2019-10-23] MEDS: OLANZapine 10 MG TABLET PO SCH ×2 (08:44→17:01)
[2019-10-23 16:44] VITALS: BP 110/70
[2019-10-23] MEDS: ZOLPIDEM TARTRATE 10 MG TABLET PO PRN (21:16)
[2019-10-24 05:03] VITALS: BP 107/57
[2019-10-24] MEDS: DIVALPROEX SODIUM 500 MG ER TABLET PO SCH ×2 (08:09→15:56)
[2019-10-24] MEDS: FluPHENAZine HCL 10 MG TABLET PO SCH ×2 (08:09→15:56)
[2019-10-24] MEDS: OMEGA-3/DHA/EPA/FISH OIL 1,000 MG CAPSULE PO SCH (08:09)
[2019-10-24] MEDS: OLANZapine 10 MG TABLET PO SCH ×2 (08:09→15:56)
[2019-10-24 08:16] VITALS: BP 116/71
[2019-10-24 16:20] VITALS: BP 108/61
[2019-10-24] MEDS: LORazepam 2 MG TABLET PO PRN (19:58)
[2019-10-25 02:19] VITALS: BP 100/66
[2019-10-25 08:25] VITALS: BP 104/56
[2019-10-25] MEDS: OMEGA-3/DHA/EPA/FISH OIL 1,000 MG CAPSULE PO SCH (08:45)
[2019-10-25] MEDS: OLANZapine 10 MG TABLET PO SCH ×2 (08:45→16:28)
[2019-10-25] MEDS: DIVALPROEX SODIUM 500 MG ER TABLET PO SCH ×2 (08:45→16:29)
[2019-10-25] MEDS: FluPHENAZine HCL 10 MG TABLET PO SCH ×2 (08:45→16:28)
[2019-10-25 16:26] VITALS: BP 120/69
[2019-10-26 01:57] VITALS: BP 124/74
[2019-10-26 08:07] VITALS: BP 107/64
[2019-10-26] MEDS: FluPHENAZine HCL 10 MG TABLET PO SCH ×2 (08:22→16:34)
[2019-10-26] MEDS: OMEGA-3/DHA/EPA/FISH OIL 1,000 MG CAPSULE PO SCH (08:22)
[2019-10-26] MEDS: OLANZapine 10 MG TABLET PO SCH ×2 (08:22→16:34)
[2019-10-26] MEDS: DIVALPROEX SODIUM 500 MG ER TABLET PO SCH ×2 (08:22→16:34)
[2019-10-26 16:45] VITALS: BP 110/62
[2019-10-27 04:54] VITALS: BP 124/76
[2019-10-27] MEDS: FluPHENAZine HCL 10 MG TABLET PO SCH ×2 (08:23→16:51)
[2019-10-27] MEDS: OLANZapine 10 MG TABLET PO SCH ×2 (08:23→16:51)
[2019-10-27] MEDS: DIVALPROEX SODIUM 500 MG ER TABLET PO SCH ×2 (08:23→16:51)
[2019-10-27] MEDS: OMEGA-3/DHA/EPA/FISH OIL 1,000 MG CAPSULE PO SCH (08:23)
[2019-10-27 08:48] VITALS: BP 128/66
[2019-10-27 16:12] VITALS: BP 113/68
[2019-10-28 06:41] VITALS: BP 104/58
[2019-10-28 08:17] VITALS: BP 114/63
[2019-10-28] MEDS: OLANZapine 10 MG TABLET PO SCH ×2 (08:50→16:33)
[2019-10-28] MEDS: OMEGA-3/DHA/EPA/FISH OIL 1,000 MG CAPSULE PO SCH (08:50)
[2019-10-28] MEDS: DIVALPROEX SODIUM 500 MG ER TABLET PO SCH ×2 (08:50→16:33)
[2019-10-28] MEDS: FluPHENAZine HCL 10 MG TABLET PO SCH ×2 (08:50→16:33)
[2019-10-28 16:09] VITALS: BP 117/59
[2019-10-29 05:55] VITALS: BP 120/60
[2019-10-29] MEDS: FluPHENAZine HCL 10 MG TABLET PO SCH ×2 (08:12→16:15)
[2019-10-29] MEDS: OMEGA-3/DHA/EPA/FISH OIL 1,000 MG CAPSULE PO SCH (08:12)
[2019-10-29] MEDS: DIVALPROEX SODIUM 500 MG ER TABLET PO SCH ×2 (08:12→16:15)
[2019-10-29] MEDS: OLANZapine 10 MG TABLET PO SCH ×2 (08:12→16:15)
[2019-10-29 08:24] VITALS: BP 119/66
[2019-10-29 17:25] VITALS: BP 114/57
[2019-10-30 01:42] VITALS: BP 116/64
[2019-10-30] MEDS: OMEGA-3/DHA/EPA/FISH OIL 1,000 MG CAPSULE PO SCH (08:01)
[2019-10-30] MEDS: FluPHENAZine HCL 10 MG TABLET PO SCH ×2 (08:01→16:10)
[2019-10-30] MEDS: OLANZapine 10 MG TABLET PO SCH ×2 (08:01→16:10)
[2019-10-30] MEDS: DIVALPROEX SODIUM 500 MG ER TABLET PO SCH ×2 (08:01→16:10)
[2019-10-30 08:12] VITALS: BP 100/59
[2019-10-30 17:20] VITALS: BP 104/64
[2019-10-31 02:24] VITALS: BP 100/68
[2019-10-31] MEDS: DIVALPROEX SODIUM 500 MG ER TABLET PO SCH ×2 (08:14→16:19)
[2019-10-31] MEDS: OMEGA-3/DHA/EPA/FISH OIL 1,000 MG CAPSULE PO SCH (08:14)
[2019-10-31] MEDS: FluPHENAZine HCL 10 MG TABLET PO SCH ×2 (08:14→16:19)
[2019-10-31] MEDS: OLANZapine 10 MG TABLET PO SCH ×2 (08:14→16:19)
[2019-10-31 08:26] VITALS: BP 107/65
[2019-10-31 16:59] VITALS: BP 116/70
[2019-11-01 04:38] VITALS: BP 105/74
[2019-11-01] MEDS: DIVALPROEX SODIUM 500 MG ER TABLET PO SCH ×2 (08:16→16:42)
[2019-11-01] MEDS: OLANZapine 10 MG TABLET PO SCH ×2 (08:16→16:42)
[2019-11-01] MEDS: OMEGA-3/DHA/EPA/FISH OIL 1,000 MG CAPSULE PO SCH (08:16)
[2019-11-01] MEDS: FluPHENAZine HCL 10 MG TABLET PO SCH ×2 (08:16→16:42)
[2019-11-01 08:22] VITALS: BP 98/64
[2019-11-01 16:04] VITALS: BP 110/74
[2019-11-01] MEDS: ZOLPIDEM TARTRATE 10 MG TABLET PO PRN (20:19)
[2019-11-02 06:16] VITALS: BP 78/41
[2019-11-02] MEDS: DIVALPROEX SODIUM 500 MG ER TABLET PO SCH ×2 (07:52→16:29)
[2019-11-02] MEDS: OMEGA-3/DHA/EPA/FISH OIL 1,000 MG CAPSULE PO SCH (07:52)
[2019-11-02] MEDS: FluPHENAZine HCL 10 MG TABLET PO SCH ×2 (07:52→16:29)
[2019-11-02] MEDS: OLANZapine 10 MG TABLET PO SCH ×2 (07:52→16:29)
[2019-11-02 08:24] VITALS: BP 102/53
[2019-11-02 16:00] VITALS: BP 124/80
[2019-11-02] MEDS: NICOTINE 14 MG/24 HOUR PATCH TD PRN (17:47)
[2019-11-03 04:16] VITALS: BP 120/76
[2019-11-03 08:14] VITALS: BP 104/53
[2019-11-03] MEDS: OMEGA-3/DHA/EPA/FISH OIL 1,000 MG CAPSULE PO SCH (08:37)
[2019-11-03] MEDS: DIVALPROEX SODIUM 500 MG ER TABLET PO SCH ×2 (08:38→17:09)
[2019-11-03] MEDS: FluPHENAZine HCL 10 MG TABLET PO SCH ×2 (08:38→17:09)
[2019-11-03] MEDS: OLANZapine 10 MG TABLET PO SCH ×2 (08:38→17:09)
[2019-11-03 16:17] VITALS: BP 101/59
[2019-11-04 01:28] VITALS: BP 106/64
[2019-11-04] MEDS ORDERED: FLUP10 PO (02:53)
[2019-11-04] MEDS: FluPHENAZine HCL 10 MG TABLET PO SCH (08:24)
[2019-11-04] MEDS: OLANZapine 10 MG TABLET PO SCH (08:24)
[2019-11-04] MEDS: OMEGA-3/DHA/EPA/FISH OIL 1,000 MG CAPSULE PO SCH (08:24)
[2019-11-04] MEDS: DIVALPROEX SODIUM 500 MG ER TABLET PO SCH (08:25)
[2019-11-04 08:27] VITALS: BP 114/63
== END 2019-11-04 10:15 | disposition home or self-care (01) | DRG 750 ==
LOC: B3A 03:00 → UNDODISIN 10-11 11:10 → B3A 10-16 13:04
PROVIDERS: ATTEND Psychiatry & Neurology Child & Adolescent Psychiatry
DX: F25.0 Schizoaffective disorder, bipolar type (principal); F23 Brief psychotic disorder; D64.9 Anemia, unspecified; G40.909 Epilepsy, unspecified, not intractable, without status epilepticus; F41.9 Anxiety disorder, unspecified; F10.10 Alcohol abuse, uncomplicated; Y90.9 Presence of alcohol in blood, level not specified; Z59.0 Homelessness; Z91.19 Patient's noncompliance with other medical treatment and regimen
CPT/HCPCS: 26011; 83036; 84443; 87081; J1200; J1630; J2060

== ENCOUNTER 2019-11-08 15:21 | Emergency (ER) | payer MEDICAID, OTHER ==
[~2019-11-08] VITALS: Ht 170.2 cm; Wt 68.2 kg
[~2019-11-08 15:21] MED LIST changes: +FLUP10 PO
[2019-11-08] MEDS: ACETAMINOPHEN 500 MG TABLET PO ONE (16:18)
[2019-11-08] MEDS: SODIUM CHLORIDE 0.9% 1,000 ML IV ONE (16:35)
[2019-11-08 16:51] LABS: BASOPHILS % (AUTO) 0.7 % (0.0-2.0); LYMPHOCYTES # (AUTO) 2.7 K/uL (1.0-4.8); LYMPHOCYTES % (AUTO) 27.8 % (22.0-44.0); MEAN CORPUSCULAR HEMOGLOBIN 26.5 pg (26.0-34.0); MEAN CORPUSCULAR HGB CONC 32.5 G/dL (31.0-37.0); MEAN CORPUSCULAR VOLUME 82 fL (80-100); MONOCYTES # (AUTO) 0.9 K/uL (0.1-1.0); MONOCYTES % (AUTO) 9.3 % (2.0-9.0); NEUTROPHILS % (AUTO) 60.2 % (40.0-70.0); PLATELET COUNT (AUTO) 203 K/uL (150-450)
[2019-11-08 16:56] LABS: APPEARANCE,URINE CLOUDY (CLEAR); GLUCOSE, URINE (UA) NEGATIVE (NEGATIVE); KETONES,URINE TRACE mg/dL (NEGATIVE); LEUKOCYTE ESTERASE ,URINE SMALL (NEGATIVE); NITRATE,URINE NEGATIVE (NEGATIVE); PROTEIN,URINE SEE CONFIRM (NEGATIVE)
[2019-11-08 16:58] LABS: INR 1.1 (0.9-1.1); PROTHROMBIN TIME 11.4 SEC (9.4-11.6)
[2019-11-08 17:04] LABS: ANION GAP 11 mmol/L (8-16); CALCIUM, TOTAL 9.2 mg/dL (8.8-10.5); CARBON DIOXIDE 25 mmol/L (22-29); CHLORIDE 102 mmol/L (98-107); CREATININE 0.82 mg/dL (0.60-1.30); GLOMERULAR FILTR. RATE CALC > 60 mL/min (>60); GLUCOSE,RANDOM 115 mg/dL (70-110); POTASSIUM 3.6 mmol/L (3.5-5.1); SODIUM SERUM 138 mmol/L (136-145); UREA NITROGEN, BLOOD 11 mg/dL (7-18)
[2019-11-08 17:08] LABS: BILIRUBIN,URINE PRELIM. POSITIVE (NEGATIVE); OCCULT BLOOD,URINE MODERATE (NEGATIVE)
[2019-11-08 17:09] LABS: SULFOSALICYLIC ACID,URINE 3+ (Negative)
[2019-11-08 17:10] LABS: BACTERIA,URINE Moderate /HPF (None Seen); SQUAMOUS EPITHELIAL CELL,UR Moderate /LPF (None Seen)
[2019-11-08 17:12] LABS: LACTIC ACID 1.3 mmol/L (0.4-2.0)
[2019-11-08 17:14] LABS: TROPONIN I < 0.02 ng/mL (0.00-0.05)
[2019-11-08 17:20] LABS: AMMONIA 18 umol/L (11-32)
[2019-11-08] MEDS ORDERED: SODIUM CHLORIDE 0.9% 1,000 ML IV ONE (17:30)
[2019-11-08] MEDS ORDERED: CefTRIAXone 1 GM/DEXTROSE 50 ML IV ONE (17:30)
[2019-11-08 17:31] LABS: ALANINE AMINOTRANSFERASE 132 U/L (12-78); ALBUMIN 4.1 g/dL (3.4-5.0); ALKALINE PHOSPHATASE 93 U/L (46-116); ASPARTATE AMINOTRANSFERASE 78 U/L (15-37); BILIRUBIN,TOTAL 0.6 mg/dL (0.1-1.0); FREE T4 (FREE THYROXINE) 1.38 ng/dL (0.76-1.46); HCG,QUANTITATIVE < 1 mIU/mL (0-6); THYROID STIMULATING HORMONE 1.55 uIU/mL (0.36-3.74); TOTAL PROTEIN, SERUM 8.2 g/dL (6.4-8.2); VALPROIC ACID 5 mcg/mL (50-100)
[2019-11-08 17:32] LABS: CREATINE KINASE, TOTAL ONLY 1726 U/L (26-192)
[2019-11-08 17:34] LABS: AMPHET/METH SCREEN,URINE POSITIVE (NEGATIVE); BARBITURATE SCREEN, URINE NEGATIVE (NEGATIVE); BENZODIAZEPINES SCREEN,URINE NEGATIVE (NEGATIVE); CANNABINOID SCREEN,URINE POSITIVE (NEGATIVE); COCAINE SCREEN,URINE NEGATIVE (NEGATIVE); METHADONE SCREEN, URINE NEGATIVE (NEGATIVE); OPIATE SCREEN,URINE NEGATIVE (NEGATIVE)
[2019-11-08 17:37] LABS: PHENCYCLIDINE SCREEN,URINE NEGATIVE (NEGATIVE)
[2019-11-08] MEDS ORDERED: DiphenhydrAMINE HCL 50 MG CAPSULE PO ONE (17:45)
[2019-11-08] MEDS ORDERED: HALOPERIDOL 5 MG TABLET PO ONE (17:45)
[2019-11-08] MEDS ORDERED: LORazepam 2 MG TABLET PO ONE (17:45)
[2019-11-08 18:51] VITALS: BP 125/66
== END 2019-11-08 17:45 | disposition left against medical advice (07) ==
LOC: EMS 15:22
DX: F25.9 Schizoaffective disorder, unspecified (principal); F31.9 Bipolar disorder, unspecified; N39.0 Urinary tract infection, site not specified; F15.10 Other stimulant abuse, uncomplicated; R41.82 Altered mental status, unspecified; F17.210 Nicotine dependence, cigarettes, uncomplicated
CPT/HCPCS: 36415; 71045; 80053; 80164; 80307; 81001; 82140; 82550; 83605; 84439; 84443; 84484; 84702; 85025; 85610; 85730; 87040; 87086; 93005; 96360; 99285; J7030

== ENCOUNTER 2019-11-09 11:20 | Inpatient (IN) | payer MEDICAID, OTHER ==
[~2019-11-09] VITALS: Ht 160 cm; Wt 80.7 kg
[~2019-11-09 11:20] MED LIST changes: +DIVA-112 PO; -DIVA-78 PO
[2019-11-09 12:21] LABS: BASOPHILS % (AUTO) 0.9 % (0.0-2.0); EOSINOPHILS % (AUTO) 6.3 % (1.0-6.0); HEMATOCRIT 38.8 % (36-46); HEMOGLOBIN 12.8 g/dL (12.0-16.0); LYMPHOCYTES # (AUTO) 2.8 K/uL (1.0-4.8); LYMPHOCYTES % (AUTO) 33.4 % (22.0-44.0); MEAN CORPUSCULAR HEMOGLOBIN 26.8 pg (26.0-34.0); MEAN CORPUSCULAR HGB CONC 32.9 G/dL (31.0-37.0); MEAN CORPUSCULAR VOLUME 82 fL (80-100); MONOCYTES # (AUTO) 0.9 K/uL (0.1-1.0); MONOCYTES % (AUTO) 10.3 % (2.0-9.0); NEUTROPHILS # (AUTO) 4.1 K/uL (1.8-7.7); NEUTROPHILS % (AUTO) 49.1 % (40.0-70.0); PLATELET COUNT (AUTO) 184 K/uL (150-450); RED BLOOD CELL COUNT(AUTO) 4.76 MIL/uL (4.00-5.20); RED CELL DISTRIBUTION WIDTH 17.5 % (11.5-14.5)
[2019-11-09 12:37] LABS: ALANINE AMINOTRANSFERASE 116 U/L (12-78); ALKALINE PHOSPHATASE 90 U/L (46-116); ASPARTATE AMINOTRANSFERASE 54 U/L (15-37); BILIRUBIN,TOTAL 0.5 mg/dL (0.1-1.0); CALCIUM, TOTAL 8.9 mg/dL (8.8-10.5); CHLORIDE 101 mmol/L (98-107); CREATININE 0.88 mg/dL (0.60-1.30); GLOMERULAR FILTR. RATE CALC > 60 mL/min (>60); GLUCOSE,RANDOM 108 mg/dL (70-110); POTASSIUM 3.3 mmol/L (3.5-5.1); SODIUM SERUM 138 mmol/L (136-145); TOTAL PROTEIN, SERUM 7.8 g/dL (6.4-8.2); UREA NITROGEN, BLOOD 11 mg/dL (7-18)
[2019-11-09 13:08] LABS: ANION GAP 17 mmol/L (8-16); CARBON DIOXIDE 20 mmol/L (22-29)
[2019-11-09 13:09] LABS: VALPROIC ACID < 3 mcg/mL (50-100)
[2019-11-09 13:12] LABS: AMPHET/METH SCREEN,URINE POSITIVE (NEGATIVE); BARBITURATE SCREEN, URINE NEGATIVE (NEGATIVE); BENZODIAZEPINES SCREEN,URINE NEGATIVE (NEGATIVE); CANNABINOID SCREEN,URINE POSITIVE (NEGATIVE); COCAINE SCREEN,URINE NEGATIVE (NEGATIVE); METHADONE SCREEN, URINE NEGATIVE (NEGATIVE); OPIATE SCREEN,URINE NEGATIVE (NEGATIVE)
[2019-11-09 13:22] LABS: PHENCYCLIDINE SCREEN,URINE NEGATIVE (NEGATIVE)
[2019-11-09 17:39] VITALS: BP 108/70
[2019-11-09] MEDS ORDERED: POTASSIUM CHLORIDE 20 MEQ ER TABLET PO ONE (18:00)
[2019-11-09] MEDS: FluPHENAZine HCL 10 MG TABLET PO SCH (19:32)
[2019-11-09] MEDS: OLANZapine 10 MG TABLET PO SCH (19:32)
[2019-11-09] MEDS: DIVALPROEX SODIUM 500 MG DR TABLET PO SCH (22:34)
[2019-11-10 05:39] VITALS: BP 103/65
[2019-11-10] MEDS: FluPHENAZine HCL 10 MG TABLET PO SCH ×2 (06:43→16:48)
[2019-11-10 08:50] VITALS: BP 90/61
[2019-11-10] MEDS: DIVALPROEX SODIUM 500 MG DR TABLET PO SCH ×2 (09:54→20:35)
[2019-11-10] MEDS: OLANZapine 10 MG TABLET PO SCH ×2 (09:54→16:48)
[2019-11-10] MEDS: OMEGA-3/DHA/EPA/FISH OIL 1,000 MG CAPSULE PO SCH (09:54)
[2019-11-11 06:09] VITALS: BP 101/62
[2019-11-11] MEDS: FluPHENAZine HCL 10 MG TABLET PO SCH ×2 (06:25→17:10)
[2019-11-11] MEDS: OMEGA-3/DHA/EPA/FISH OIL 1,000 MG CAPSULE PO SCH (08:57)
[2019-11-11] MEDS: DIVALPROEX SODIUM 500 MG DR TABLET PO SCH ×2 (08:57→20:56)
[2019-11-11] MEDS: OLANZapine 10 MG TABLET PO SCH ×2 (08:57→17:10)
[2019-11-11 10:08] VITALS: BP 104/55
[2019-11-11 16:00] VITALS: BP 111/72
[2019-11-12 05:52] VITALS: BP 108/63
[2019-11-12] MEDS: FluPHENAZine HCL 10 MG TABLET PO SCH ×2 (06:06→16:31)
[2019-11-12 08:15] VITALS: BP 106/61
[2019-11-12] MEDS: DIVALPROEX SODIUM 500 MG DR TABLET PO SCH ×2 (08:18→20:56)
[2019-11-12] MEDS: OLANZapine 10 MG TABLET PO SCH ×2 (08:18→16:31)
[2019-11-12] MEDS: OMEGA-3/DHA/EPA/FISH OIL 1,000 MG CAPSULE PO SCH (08:18)
[2019-11-12 16:51] VITALS: BP 106/68
[2019-11-13 03:04] VITALS: BP 121/73
[2019-11-13] MEDS: FluPHENAZine HCL 10 MG TABLET PO SCH ×2 (05:49→15:58)
[2019-11-13] MEDS: DIVALPROEX SODIUM 500 MG DR TABLET PO SCH ×2 (08:00→20:24)
[2019-11-13] MEDS: OLANZapine 10 MG TABLET PO SCH ×2 (08:00→15:58)
[2019-11-13] MEDS: OMEGA-3/DHA/EPA/FISH OIL 1,000 MG CAPSULE PO SCH (08:00)
[2019-11-13 08:25] VITALS: BP 110/76
[2019-11-13 16:49] VITALS: BP 111/68
[2019-11-14 04:24] VITALS: BP 112/62
[2019-11-14] MEDS: FluPHENAZine HCL 10 MG TABLET PO SCH ×2 (05:43→16:40)
[2019-11-14] MEDS: OMEGA-3/DHA/EPA/FISH OIL 1,000 MG CAPSULE PO SCH (08:22)
[2019-11-14] MEDS: OLANZapine 10 MG TABLET PO SCH ×2 (08:22→16:40)
[2019-11-14] MEDS: DIVALPROEX SODIUM 500 MG DR TABLET PO SCH ×2 (08:22→21:27)
[2019-11-14 08:32] VITALS: BP 112/66
[2019-11-15] MEDS: FluPHENAZine HCL 10 MG TABLET PO SCH ×2 (05:32→16:00)
[2019-11-15 06:11] VITALS: BP 105/53
[2019-11-15] MEDS: OLANZapine 10 MG TABLET PO SCH ×2 (09:01→16:01)
[2019-11-15] MEDS: DIVALPROEX SODIUM 500 MG DR TABLET PO SCH ×2 (09:01→21:03)
[2019-11-15] MEDS: OMEGA-3/DHA/EPA/FISH OIL 1,000 MG CAPSULE PO SCH (09:02)
[2019-11-15 09:57] VITALS: BP 113/98
[2019-11-15 19:40] VITALS: BP 108/59
[2019-11-16 04:17] VITALS: BP 115/65
[2019-11-16] MEDS: FluPHENAZine HCL 10 MG TABLET PO SCH ×2 (06:27→16:38)
[2019-11-16 08:34] VITALS: BP 110/66
[2019-11-16] MEDS: OLANZapine 10 MG TABLET PO SCH ×2 (08:47→16:39)
[2019-11-16] MEDS: DIVALPROEX SODIUM 500 MG DR TABLET PO SCH ×2 (08:47→20:50)
[2019-11-16] MEDS: OMEGA-3/DHA/EPA/FISH OIL 1,000 MG CAPSULE PO SCH (08:47)
[2019-11-16 16:00] VITALS: BP 108/71
[2019-11-17 00:30] VITALS: BP 121/65
[2019-11-17] MEDS: FluPHENAZine HCL 10 MG TABLET PO SCH ×2 (06:02→16:55)
[2019-11-17] MEDS: DIVALPROEX SODIUM 500 MG DR TABLET PO SCH ×2 (08:13→20:50)
[2019-11-17] MEDS: OLANZapine 10 MG TABLET PO SCH ×2 (08:13→16:55)
[2019-11-17] MEDS: OMEGA-3/DHA/EPA/FISH OIL 1,000 MG CAPSULE PO SCH (08:13)
[2019-11-17 08:36] VITALS: BP 104/66
[2019-11-17 08:49] LABS: BASOPHILS % (AUTO) 0.5 % (0.0-2.0); HEMATOCRIT 37.7 % (36-46); HEMOGLOBIN 12.3 g/dL (12.0-16.0); LYMPHOCYTES # (AUTO) 2.4 K/uL (1.0-4.8); LYMPHOCYTES % (AUTO) 41.6 % (22.0-44.0); MEAN CORPUSCULAR HEMOGLOBIN 27.2 pg (26.0-34.0); MEAN CORPUSCULAR HGB CONC 32.7 G/dL (31.0-37.0); MEAN CORPUSCULAR VOLUME 83 fL (80-100); MONOCYTES # (AUTO) 0.6 K/uL (0.1-1.0); NEUTROPHILS # (AUTO) 2.5 K/uL (1.8-7.7); NEUTROPHILS % (AUTO) 43.9 % (40.0-70.0); PLATELET COUNT (AUTO) 160 K/uL (150-450); RED BLOOD CELL COUNT(AUTO) 4.53 MIL/uL (4.00-5.20); RED CELL DISTRIBUTION WIDTH 17.2 % (11.5-14.5)
[2019-11-17 09:38] LABS: ALANINE AMINOTRANSFERASE 36 U/L (12-78); ALBUMIN 3.3 g/dL (3.4-5.0); ALKALINE PHOSPHATASE 79 U/L (46-116); ANION GAP 12 mmol/L (8-16); ASPARTATE AMINOTRANSFERASE 15 U/L (15-37); BILIRUBIN,TOTAL 0.3 mg/dL (0.1-1.0); CALCIUM, TOTAL 9.1 mg/dL (8.8-10.5); CARBON DIOXIDE 23 mmol/L (22-29); CHLORIDE 107 mmol/L (98-107); CREATININE 0.75 mg/dL (0.60-1.30); GLOMERULAR FILTR. RATE CALC > 60 mL/min (>60); GLUCOSE,RANDOM 79 mg/dL (70-110); POTASSIUM 4.5 mmol/L (3.5-5.1); SODIUM SERUM 142 mmol/L (136-145); THYROID STIMULATING HORMONE 1.78 uIU/mL (0.36-3.74); TOTAL PROTEIN, SERUM 6.9 g/dL (6.4-8.2); UREA NITROGEN, BLOOD 20 mg/dL (7-18)
[2019-11-17 17:12] VITALS: BP 116/64
[2019-11-18 05:08] VITALS: BP 100/55
[2019-11-18] MEDS: FluPHENAZine HCL 10 MG TABLET PO SCH ×2 (06:41→16:19)
[2019-11-18 08:20] VITALS: BP 100/55
[2019-11-18] MEDS: OMEGA-3/DHA/EPA/FISH OIL 1,000 MG CAPSULE PO SCH (08:33)
[2019-11-18] MEDS: DIVALPROEX SODIUM 500 MG DR TABLET PO SCH ×2 (08:33→20:42)
[2019-11-18] MEDS: OLANZapine 10 MG TABLET PO SCH ×2 (08:33→16:19)
[2019-11-18 16:34] VITALS: BP 128/72
[2019-11-19] VITALS: BP 105/57
[2019-11-19] MEDS: FluPHENAZine HCL 10 MG TABLET PO SCH ×2 (06:45→16:07)
[2019-11-19] MEDS: OLANZapine 10 MG TABLET PO SCH ×2 (08:19→16:07)
[2019-11-19] MEDS: OMEGA-3/DHA/EPA/FISH OIL 1,000 MG CAPSULE PO SCH (08:19)
[2019-11-19] MEDS: DIVALPROEX SODIUM 500 MG DR TABLET PO SCH ×2 (08:19→20:03)
[2019-11-19 08:21] VITALS: BP 100/53
[2019-11-19 16:35] VITALS: BP 112/66
[2019-11-20 05:34] VITALS: BP 104/44
[2019-11-20] MEDS: FluPHENAZine HCL 10 MG TABLET PO SCH ×2 (06:13→17:00)
[2019-11-20] MEDS: DIVALPROEX SODIUM 500 MG DR TABLET PO SCH ×2 (09:26→20:22)
[2019-11-20] MEDS: OMEGA-3/DHA/EPA/FISH OIL 1,000 MG CAPSULE PO SCH (09:26)
[2019-11-20] MEDS: OLANZapine 10 MG TABLET PO SCH ×2 (09:26→17:47)
[2019-11-20 10:54] VITALS: BP 101/60
[2019-11-20] MEDS: LORazepam 2 MG TABLET PO PRN (16:26)
[2019-11-20 18:03] VITALS: BP 100/64
[2019-11-21] MEDS: FluPHENAZine HCL 10 MG TABLET PO SCH ×2 (06:17→16:29)
[2019-11-21 08:20] VITALS: BP 111/56
[2019-11-21] MEDS: OMEGA-3/DHA/EPA/FISH OIL 1,000 MG CAPSULE PO SCH (08:25)
[2019-11-21] MEDS: DIVALPROEX SODIUM 500 MG DR TABLET PO SCH ×2 (08:25→20:25)
[2019-11-21] MEDS: OLANZapine 10 MG TABLET PO SCH ×2 (08:26→16:29)
[2019-11-21 16:05] VITALS: BP 106/81
[2019-11-22 02:17] VITALS: BP 117/77
[2019-11-22] MEDS: FluPHENAZine HCL 10 MG TABLET PO SCH ×2 (06:32→16:02)
[2019-11-22 08:08] VITALS: BP 121/62
[2019-11-22] MEDS: OMEGA-3/DHA/EPA/FISH OIL 1,000 MG CAPSULE PO SCH (08:17)
[2019-11-22] MEDS: OLANZapine 10 MG TABLET PO SCH ×2 (08:17→16:02)
[2019-11-22] MEDS: DIVALPROEX SODIUM 500 MG DR TABLET PO SCH ×2 (08:17→20:26)
[2019-11-22 16:18] VITALS: BP 96/58
[2019-11-23 04:50] VITALS: BP 101/67
[2019-11-23] MEDS: FluPHENAZine HCL 10 MG TABLET PO SCH ×2 (06:13→16:21)
[2019-11-23] MEDS: OLANZapine 10 MG TABLET PO SCH ×2 (08:10→16:21)
[2019-11-23] MEDS: OMEGA-3/DHA/EPA/FISH OIL 1,000 MG CAPSULE PO SCH (08:10)
[2019-11-23] MEDS: DIVALPROEX SODIUM 500 MG DR TABLET PO SCH ×2 (08:10→20:22)
[2019-11-23 08:21] VITALS: BP 100/55
[2019-11-23 16:56] VITALS: BP 104/61
[2019-11-24 04:58] VITALS: BP 100/67
[2019-11-24] MEDS: FluPHENAZine HCL 10 MG TABLET PO SCH ×2 (06:32→16:38)
[2019-11-24 08:13] VITALS: BP 116/64
[2019-11-24] MEDS: OMEGA-3/DHA/EPA/FISH OIL 1,000 MG CAPSULE PO SCH (08:48)
[2019-11-24] MEDS: OLANZapine 10 MG TABLET PO SCH ×2 (08:48→16:37)
[2019-11-24] MEDS: DIVALPROEX SODIUM 500 MG DR TABLET PO SCH ×2 (08:48→20:51)
[2019-11-24 16:13] VITALS: BP 112/63
[2019-11-25 05:26] VITALS: BP 100/60
[2019-11-25] MEDS: FluPHENAZine HCL 10 MG TABLET PO SCH ×2 (06:03→16:10)
[2019-11-25 08:30] VITALS: BP 114/68
[2019-11-25] MEDS: OMEGA-3/DHA/EPA/FISH OIL 1,000 MG CAPSULE PO SCH (08:34)
[2019-11-25] MEDS: OLANZapine 10 MG TABLET PO SCH ×2 (08:34→16:10)
[2019-11-25] MEDS: DIVALPROEX SODIUM 500 MG DR TABLET PO SCH ×2 (08:34→20:07)
[2019-11-25 16:18] VITALS: BP 109/58
[2019-11-25] MEDS: LORazepam 2 MG TABLET PO PRN (17:56)
[2019-11-26 05:34] VITALS: BP 115/65
[2019-11-26] MEDS: FluPHENAZine HCL 10 MG TABLET PO SCH ×2 (07:15→16:43)
[2019-11-26] MEDS: OMEGA-3/DHA/EPA/FISH OIL 1,000 MG CAPSULE PO SCH (08:09)
[2019-11-26] MEDS: DIVALPROEX SODIUM 500 MG DR TABLET PO SCH ×2 (08:09→21:02)
[2019-11-26] MEDS: OLANZapine 10 MG TABLET PO SCH ×2 (08:10→16:43)
[2019-11-26 08:21] VITALS: BP 113/69
[2019-11-26 16:13] VITALS: BP 102/64
[2019-11-26] MEDS: ZOLPIDEM TARTRATE 10 MG TABLET PO PRN (21:02)
[2019-11-27 02:57] VITALS: BP 100/68
[2019-11-27] MEDS: FluPHENAZine HCL 10 MG TABLET PO SCH ×2 (06:33→16:07)
[2019-11-27] MEDS: DIVALPROEX SODIUM 500 MG DR TABLET PO SCH ×2 (08:19→21:07)
[2019-11-27] MEDS: OMEGA-3/DHA/EPA/FISH OIL 1,000 MG CAPSULE PO SCH (08:19)
[2019-11-27] MEDS: OLANZapine 10 MG TABLET PO SCH ×2 (08:19→16:07)
[2019-11-27 08:21] VITALS: BP 100/56
[2019-11-27 16:07] VITALS: BP 108/64
[2019-11-28 05:03] VITALS: BP 115/66
[2019-11-28] MEDS: FluPHENAZine HCL 10 MG TABLET PO SCH ×2 (06:12→16:40)
[2019-11-28] MEDS: DIVALPROEX SODIUM 500 MG DR TABLET PO SCH ×2 (08:10→20:26)
[2019-11-28] MEDS: OMEGA-3/DHA/EPA/FISH OIL 1,000 MG CAPSULE PO SCH (08:10)
[2019-11-28] MEDS: OLANZapine 10 MG TABLET PO SCH ×2 (08:10→16:40)
[2019-11-28 16:12] VITALS: BP 120/63
[2019-11-29 00:05] VITALS: BP 114/77
[2019-11-29] MEDS: FluPHENAZine HCL 10 MG TABLET PO SCH ×2 (06:15→16:37)
[2019-11-29] MEDS: OLANZapine 10 MG TABLET PO SCH ×2 (08:09→16:37)
[2019-11-29] MEDS: DIVALPROEX SODIUM 500 MG DR TABLET PO SCH ×2 (08:09→20:39)
[2019-11-29] MEDS: OMEGA-3/DHA/EPA/FISH OIL 1,000 MG CAPSULE PO SCH (08:09)
[2019-11-29 08:11] VITALS: BP 115/62
[2019-11-29] MEDS: LORazepam 2 MG TABLET PO PRN (16:11)
[2019-11-29 16:48] VITALS: BP 111/69
[2019-11-30 05:09] VITALS: BP 115/67
[2019-11-30] MEDS: FluPHENAZine HCL 10 MG TABLET PO SCH ×2 (06:34→16:23)
[2019-11-30] MEDS: DIVALPROEX SODIUM 500 MG DR TABLET PO SCH ×2 (08:18→20:14)
[2019-11-30] MEDS: OLANZapine 10 MG TABLET PO SCH ×2 (08:18→16:23)
[2019-11-30] MEDS: OMEGA-3/DHA/EPA/FISH OIL 1,000 MG CAPSULE PO SCH (08:18)
[2019-11-30 16:10] VITALS: BP 100/64
[2019-12-01 05:54] VITALS: BP 102/68
[2019-12-01] MEDS: FluPHENAZine HCL 10 MG TABLET PO SCH ×2 (06:04→16:12)
[2019-12-01 08:12] VITALS: BP 101/66
[2019-12-01] MEDS: OMEGA-3/DHA/EPA/FISH OIL 1,000 MG CAPSULE PO SCH (08:22)
[2019-12-01] MEDS: OLANZapine 10 MG TABLET PO SCH ×2 (08:22→16:12)
[2019-12-01] MEDS: DIVALPROEX SODIUM 500 MG DR TABLET PO SCH ×2 (08:22→20:09)
[2019-12-01 16:28] VITALS: BP 112/67
[2019-12-02 06:13] VITALS: BP 98/60
[2019-12-02] MEDS: FluPHENAZine HCL 10 MG TABLET PO SCH ×2 (06:29→16:29)
[2019-12-02] MEDS: OMEGA-3/DHA/EPA/FISH OIL 1,000 MG CAPSULE PO SCH (08:09)
[2019-12-02] MEDS: DIVALPROEX SODIUM 500 MG DR TABLET PO SCH ×2 (08:09→20:03)
[2019-12-02] MEDS: OLANZapine 10 MG TABLET PO SCH ×2 (08:09→16:29)
[2019-12-02 08:20] VITALS: BP 108/54
[2019-12-02 16:13] VITALS: BP 107/70
[2019-12-02] MEDS: LORazepam 2 MG TABLET PO PRN (18:54)
[2019-12-02] MEDS: HALOPERIDOL 5 MG TABLET PO PRN (18:54)
[2019-12-02] MEDS ORDERED: DOCUSATE SODIUM 100 MG CAPSULE PO PRN (20:00)
[2019-12-02] MEDS ORDERED: LOPERAMIDE HCL 2 MG CAPSULE PO PRN (20:00)
[2019-12-02] MEDS ORDERED: GuaiFENesin/D-METHORPHAN [SUGAR-FREE] 200-20MG/10 ML SYRUP UDCUP PO PRN (20:00)
[2019-12-02] MEDS ORDERED: MAG HYDROX/AL HYDROX/SIMETH ES 30 ML SUSPENSION UDCUP PO PRN (20:00)
[2019-12-02] MEDS ORDERED: PETROLATUM,WHITE 28 GM JELLY TP PRN (20:00)
[2019-12-02] MEDS ORDERED: ONDANSETRON HCL 4 MG TABLET PO PRN (20:00)
[2019-12-02] MEDS ORDERED: MAGNESIUM HYDROXIDE SUSPENSION 30 ML UDCUP PO PRN (20:00)
[2019-12-03 00:45] VITALS: BP 110/64
[2019-12-03] MEDS: FluPHENAZine HCL 10 MG TABLET PO SCH ×2 (06:27→16:12)
[2019-12-03] MEDS: OMEGA-3/DHA/EPA/FISH OIL 1,000 MG CAPSULE PO SCH (08:19)
[2019-12-03] MEDS: DIVALPROEX SODIUM 500 MG DR TABLET PO SCH ×2 (08:19→21:04)
[2019-12-03] MEDS: LORazepam 2 MG TABLET PO PRN ×2 (08:19→18:33)
[2019-12-03] MEDS: OLANZapine 10 MG TABLET PO SCH ×2 (08:19→16:12)
[2019-12-03 08:30] VITALS: BP 110/78
[2019-12-03 16:29] VITALS: BP 110/66
[2019-12-03] MEDS: ZOLPIDEM TARTRATE 10 MG TABLET PO PRN (21:04)
[2019-12-04 02:33] VITALS: BP 117/69
[2019-12-04] MEDS: FluPHENAZine HCL 10 MG TABLET PO SCH ×2 (06:08→16:36)
[2019-12-04] MEDS: DIVALPROEX SODIUM 500 MG DR TABLET PO SCH ×2 (08:21→21:00)
[2019-12-04] MEDS: OMEGA-3/DHA/EPA/FISH OIL 1,000 MG CAPSULE PO SCH (08:21)
[2019-12-04] MEDS: OLANZapine 10 MG TABLET PO SCH ×2 (08:21→16:36)
[2019-12-04 13:00] VITALS: BP 138/61
[2019-12-04 16:15] VITALS: BP 128/70
[2019-12-05 01:19] VITALS: BP 122/76
[2019-12-05] MEDS: FluPHENAZine HCL 10 MG TABLET PO SCH ×2 (06:12→16:13)
[2019-12-05 08:10] VITALS: BP 109/64
[2019-12-05] MEDS: OLANZapine 10 MG TABLET PO SCH ×2 (08:18→16:13)
[2019-12-05] MEDS: DIVALPROEX SODIUM 500 MG DR TABLET PO SCH ×2 (08:18→20:41)
[2019-12-05] MEDS: OMEGA-3/DHA/EPA/FISH OIL 1,000 MG CAPSULE PO SCH (08:18)
[2019-12-05 16:12] VITALS: BP 110/66
[2019-12-06 04:07] VITALS: BP 114/71
[2019-12-06] MEDS: FluPHENAZine HCL 10 MG TABLET PO SCH ×2 (05:46→16:11)
[2019-12-06] MEDS: OLANZapine 10 MG TABLET PO SCH ×2 (08:13→16:11)
[2019-12-06] MEDS: OMEGA-3/DHA/EPA/FISH OIL 1,000 MG CAPSULE PO SCH (08:13)
[2019-12-06] MEDS: DIVALPROEX SODIUM 500 MG DR TABLET PO SCH ×2 (08:14→20:14)
[2019-12-06 08:27] VITALS: BP 100/57
[2019-12-06] MEDS: LORazepam 2 MG TABLET PO PRN (16:11)
[2019-12-06 16:47] VITALS: BP 124/72
[2019-12-07 04:48] VITALS: BP 120/71
[2019-12-07] MEDS: FluPHENAZine HCL 10 MG TABLET PO SCH ×2 (06:26→16:08)
[2019-12-07] MEDS: OLANZapine 10 MG TABLET PO SCH ×2 (08:06→16:08)
[2019-12-07] MEDS: OMEGA-3/DHA/EPA/FISH OIL 1,000 MG CAPSULE PO SCH (08:06)
[2019-12-07] MEDS: DIVALPROEX SODIUM 500 MG DR TABLET PO SCH ×2 (08:06→20:42)
[2019-12-07 08:27] VITALS: BP 105/59
[2019-12-07 10:00] VITALS: BP 110/70
[2019-12-07] MEDS: LORazepam 2 MG TABLET PO PRN (16:08)
[2019-12-07 16:22] VITALS: BP 104/64
[2019-12-08 04:22] VITALS: BP 102/70
[2019-12-08] MEDS: FluPHENAZine HCL 10 MG TABLET PO SCH ×2 (06:26→16:18)
[2019-12-08] MEDS: DIVALPROEX SODIUM 500 MG DR TABLET PO SCH ×2 (08:49→20:13)
[2019-12-08] MEDS: OMEGA-3/DHA/EPA/FISH OIL 1,000 MG CAPSULE PO SCH (08:49)
[2019-12-08] MEDS: OLANZapine 10 MG TABLET PO SCH ×2 (08:49→16:18)
[2019-12-08 09:38] VITALS: BP 102/61
[2019-12-08] MEDS: ZOLPIDEM TARTRATE 10 MG TABLET PO PRN (22:04)
[2019-12-09 03:01] VITALS: BP 104/77
[2019-12-09] MEDS: FluPHENAZine HCL 10 MG TABLET PO SCH ×2 (06:39→16:19)
[2019-12-09] MEDS: DIVALPROEX SODIUM 500 MG DR TABLET PO SCH ×2 (08:05→20:43)
[2019-12-09] MEDS: OMEGA-3/DHA/EPA/FISH OIL 1,000 MG CAPSULE PO SCH (08:05)
[2019-12-09] MEDS: OLANZapine 10 MG TABLET PO SCH ×2 (08:05→16:19)
[2019-12-09 10:26] VITALS: BP 101/64
[2019-12-09] MEDS: LORazepam 2 MG TABLET PO PRN (15:59)
[2019-12-09 16:24] VITALS: BP 101/64
[2019-12-10 05:28] VITALS: BP 100/62
[2019-12-10] MEDS: FluPHENAZine HCL 10 MG TABLET PO SCH ×2 (06:10→16:20)
[2019-12-10 08:26] VITALS: BP 110/69
[2019-12-10] MEDS: DIVALPROEX SODIUM 500 MG DR TABLET PO SCH ×2 (08:49→21:14)
[2019-12-10] MEDS: OMEGA-3/DHA/EPA/FISH OIL 1,000 MG CAPSULE PO SCH (08:49)
[2019-12-10] MEDS: OLANZapine 10 MG TABLET PO SCH ×2 (08:49→16:20)
[2019-12-10 16:00] VITALS: BP 113/71
[2019-12-11 02:03] VITALS: BP 105/77
[2019-12-11] MEDS: FluPHENAZine HCL 10 MG TABLET PO SCH ×2 (05:50→16:07)
[2019-12-11] MEDS: OLANZapine 10 MG TABLET PO SCH ×2 (08:12→16:07)
[2019-12-11] MEDS: OMEGA-3/DHA/EPA/FISH OIL 1,000 MG CAPSULE PO SCH (08:12)
[2019-12-11] MEDS: DIVALPROEX SODIUM 500 MG DR TABLET PO SCH ×2 (08:12→20:50)
[2019-12-11 08:15] VITALS: BP 110/69
[2019-12-11 17:12] VITALS: BP 123/70
[2019-12-12 03:57] VITALS: BP 120/72
[2019-12-12] MEDS: FluPHENAZine HCL 10 MG TABLET PO SCH ×2 (06:06→16:06)
[2019-12-12 08:17] VITALS: BP 100/57
[2019-12-12] MEDS: OLANZapine 10 MG TABLET PO SCH ×2 (08:17→16:06)
[2019-12-12] MEDS: OMEGA-3/DHA/EPA/FISH OIL 1,000 MG CAPSULE PO SCH (08:17)
[2019-12-12] MEDS: DIVALPROEX SODIUM 500 MG DR TABLET PO SCH ×2 (08:17→20:24)
[2019-12-12 09:30] VITALS: BP 120/84
[2019-12-12 16:09] VITALS: BP 121/72
[2019-12-13 04:41] VITALS: BP 115/78
[2019-12-13] MEDS: FluPHENAZine HCL 10 MG TABLET PO SCH ×2 (05:33→16:22)
[2019-12-13 08:23] VITALS: BP 101/53
[2019-12-13] MEDS: OMEGA-3/DHA/EPA/FISH OIL 1,000 MG CAPSULE PO SCH (08:30)
[2019-12-13] MEDS: OLANZapine 10 MG TABLET PO SCH ×2 (08:30→16:22)
[2019-12-13] MEDS: DIVALPROEX SODIUM 500 MG DR TABLET PO SCH ×2 (08:30→20:29)
[2019-12-13 17:26] VITALS: BP 110/72
[2019-12-14 05:13] VITALS: BP 115/63
[2019-12-14] MEDS: FluPHENAZine HCL 10 MG TABLET PO SCH ×2 (06:32→16:13)
[2019-12-14 08:23] VITALS: BP 103/62
[2019-12-14] MEDS: DIVALPROEX SODIUM 500 MG DR TABLET PO SCH ×2 (08:52→21:12)
[2019-12-14] MEDS: OLANZapine 10 MG TABLET PO SCH ×2 (08:52→16:13)
[2019-12-14] MEDS: OMEGA-3/DHA/EPA/FISH OIL 1,000 MG CAPSULE PO SCH (08:52)
[2019-12-14 16:19] VITALS: BP 109/71
[2019-12-14] MEDS: LORazepam 2 MG TABLET PO PRN (16:45)
[2019-12-15 06:15] VITALS: BP 89/60
[2019-12-15] MEDS: FluPHENAZine HCL 10 MG TABLET PO SCH ×2 (06:27→16:11)
[2019-12-15 08:20] VITALS: BP 106/58
[2019-12-15] MEDS: OLANZapine 10 MG TABLET PO SCH ×2 (08:36→16:11)
[2019-12-15] MEDS: DIVALPROEX SODIUM 500 MG DR TABLET PO SCH ×2 (08:36→21:05)
[2019-12-15] MEDS: OMEGA-3/DHA/EPA/FISH OIL 1,000 MG CAPSULE PO SCH (08:36)
[2019-12-15 16:54] VITALS: BP 111/67
[2019-12-16 01:34] VITALS: BP 102/66
[2019-12-16] MEDS: FluPHENAZine HCL 10 MG TABLET PO SCH ×2 (06:31→16:05)
[2019-12-16] MEDS: DIVALPROEX SODIUM 500 MG DR TABLET PO SCH ×2 (08:04→21:06)
[2019-12-16] MEDS: OMEGA-3/DHA/EPA/FISH OIL 1,000 MG CAPSULE PO SCH (08:04)
[2019-12-16] MEDS: OLANZapine 10 MG TABLET PO SCH ×2 (08:04→16:05)
[2019-12-16 08:29] VITALS: BP 106/66
[2019-12-16] MEDS: LORazepam 2 MG TABLET PO PRN (16:05)
[2019-12-16 16:23] VITALS: BP 103/70
[2019-12-17 02:03] VITALS: BP 100/74
[2019-12-17] MEDS: FluPHENAZine HCL 10 MG TABLET PO SCH ×2 (06:27→17:09)
[2019-12-17] MEDS: DIVALPROEX SODIUM 500 MG DR TABLET PO SCH ×2 (08:13→21:06)
[2019-12-17] MEDS: OMEGA-3/DHA/EPA/FISH OIL 1,000 MG CAPSULE PO SCH (08:13)
[2019-12-17] MEDS: OLANZapine 10 MG TABLET PO SCH ×2 (08:13→17:09)
[2019-12-17 08:21] VITALS: BP 101/55
[2019-12-17 16:28] VITALS: BP 100/59
[2019-12-18 01:59] VITALS: BP 109/63
[2019-12-18] MEDS: FluPHENAZine HCL 10 MG TABLET PO SCH ×2 (06:29→16:11)
[2019-12-18] MEDS: OMEGA-3/DHA/EPA/FISH OIL 1,000 MG CAPSULE PO SCH (08:05)
[2019-12-18] MEDS: DIVALPROEX SODIUM 500 MG DR TABLET PO SCH ×2 (08:05→20:07)
[2019-12-18] MEDS: OLANZapine 10 MG TABLET PO SCH ×2 (08:05→16:11)
[2019-12-18 08:07] VITALS: BP 123/63
[2019-12-18 17:40] VITALS: BP 105/70
[2019-12-19 01:34] VITALS: BP 106/73
[2019-12-19] MEDS: FluPHENAZine HCL 10 MG TABLET PO SCH ×2 (05:57→16:38)
[2019-12-19] MEDS: OLANZapine 10 MG TABLET PO SCH ×2 (08:13→16:38)
[2019-12-19] MEDS: OMEGA-3/DHA/EPA/FISH OIL 1,000 MG CAPSULE PO SCH (08:13)
[2019-12-19] MEDS: DIVALPROEX SODIUM 500 MG DR TABLET PO SCH ×2 (08:13→20:32)
[2019-12-19 08:20] VITALS: BP 106/59
[2019-12-19 16:22] VITALS: BP 111/66
[2019-12-19] MEDS: ACETAMINOPHEN 325 MG TABLET PO PRN (16:35)
[2019-12-20 03:42] VITALS: BP 102/64
[2019-12-20] MEDS: FluPHENAZine HCL 10 MG TABLET PO SCH ×2 (06:15→16:28)
[2019-12-20] MEDS: OLANZapine 10 MG TABLET PO SCH ×2 (08:17→16:28)
[2019-12-20] MEDS: DIVALPROEX SODIUM 500 MG DR TABLET PO SCH ×2 (08:17→20:26)
[2019-12-20] MEDS: OMEGA-3/DHA/EPA/FISH OIL 1,000 MG CAPSULE PO SCH (08:17)
[2019-12-20 08:45] VITALS: BP 100/59
[2019-12-20] MEDS ORDERED: TUBERCULIN, PURIFIED PROTEIN DERIVATIVE 5 TU/0.1 ML SYRINGE ID ONE (11:45)
[2019-12-20] MEDS: LORazepam 2 MG TABLET PO PRN (16:53)
[2019-12-20 17:10] VITALS: BP 108/69
[2019-12-21 01:27] VITALS: BP 100/74
[2019-12-21] MEDS: FluPHENAZine HCL 10 MG TABLET PO SCH ×2 (06:09→16:35)
[2019-12-21 08:15] VITALS: BP 110/64
[2019-12-21] MEDS: OMEGA-3/DHA/EPA/FISH OIL 1,000 MG CAPSULE PO SCH (09:26)
[2019-12-21] MEDS: DIVALPROEX SODIUM 500 MG DR TABLET PO SCH ×2 (09:26→20:20)
[2019-12-21] MEDS: OLANZapine 10 MG TABLET PO SCH ×2 (09:26→16:35)
[2019-12-21 16:11] VITALS: BP 118/82
[2019-12-22 06:36] VITALS: BP 88/62
[2019-12-22] MEDS: FluPHENAZine HCL 10 MG TABLET PO SCH ×2 (06:36→17:19)
[2019-12-22] MEDS: OMEGA-3/DHA/EPA/FISH OIL 1,000 MG CAPSULE PO SCH (08:08)
[2019-12-22] MEDS: DIVALPROEX SODIUM 500 MG DR TABLET PO SCH ×2 (08:08→20:12)
[2019-12-22] MEDS: OLANZapine 10 MG TABLET PO SCH ×2 (08:08→17:19)
[2019-12-22 08:13] VITALS: BP 99/63
[2019-12-22 16:34] VITALS: BP 113/75
[2019-12-22] MEDS: LORazepam 2 MG TABLET PO PRN (17:19)
[2019-12-23] MEDS: FluPHENAZine HCL 10 MG TABLET PO SCH ×2 (06:25→16:58)
[2019-12-23 08:06] VITALS: BP 103/53
[2019-12-23] MEDS: OMEGA-3/DHA/EPA/FISH OIL 1,000 MG CAPSULE PO SCH (08:20)
[2019-12-23] MEDS: DIVALPROEX SODIUM 500 MG DR TABLET PO SCH ×2 (08:20→20:25)
[2019-12-23] MEDS: OLANZapine 10 MG TABLET PO SCH ×2 (08:21→16:58)
[2019-12-23] MEDS: LORazepam 2 MG TABLET PO PRN (16:09)
[2019-12-23 16:14] VITALS: BP 124/90
[2019-12-23] MEDS: ZOLPIDEM TARTRATE 10 MG TABLET PO PRN (20:53)
[2019-12-24 04:03] VITALS: BP 127/77
[2019-12-24] MEDS: FluPHENAZine HCL 10 MG TABLET PO SCH ×2 (06:19→16:06)
[2019-12-24 08:13] VITALS: BP 100/59
[2019-12-24] MEDS: DIVALPROEX SODIUM 500 MG DR TABLET PO SCH ×2 (08:24→20:36)
[2019-12-24] MEDS: OMEGA-3/DHA/EPA/FISH OIL 1,000 MG CAPSULE PO SCH (08:24)
[2019-12-24] MEDS: OLANZapine 10 MG TABLET PO SCH ×2 (08:24→16:06)
[2019-12-24 16:27] VITALS: BP 127/64
[2019-12-25 01:14] VITALS: BP 111/68
[2019-12-25] MEDS: FluPHENAZine HCL 10 MG TABLET PO SCH ×2 (07:19→16:25)
[2019-12-25] MEDS: OMEGA-3/DHA/EPA/FISH OIL 1,000 MG CAPSULE PO SCH (08:08)
[2019-12-25] MEDS: OLANZapine 10 MG TABLET PO SCH ×2 (08:08→16:25)
[2019-12-25] MEDS: DIVALPROEX SODIUM 500 MG DR TABLET PO SCH ×2 (08:09→21:03)
[2019-12-25 08:13] VITALS: BP 102/66
[2019-12-25 17:08] VITALS: BP 109/65
[2019-12-26 04:05] VITALS: BP 106/69
[2019-12-26] MEDS: FluPHENAZine HCL 10 MG TABLET PO SCH ×2 (06:45→16:20)
[2019-12-26 08:23] VITALS: BP 101/64
[2019-12-26] MEDS: DIVALPROEX SODIUM 500 MG DR TABLET PO SCH ×2 (08:37→21:26)
[2019-12-26] MEDS: OLANZapine 10 MG TABLET PO SCH ×2 (08:37→16:20)
[2019-12-26] MEDS: OMEGA-3/DHA/EPA/FISH OIL 1,000 MG CAPSULE PO SCH (08:37)
[2019-12-26] MEDS: HYPROMELLOSE 0.5% 15 ML OPHTHALMIC SOLUTION OU PRN (16:21)
[2019-12-26 16:35] VITALS: BP 120/70
[2019-12-27 01:20] VITALS: BP 115/77
[2019-12-27] MEDS: FluPHENAZine HCL 10 MG TABLET PO SCH ×2 (06:41→16:13)
[2019-12-27 08:30] VITALS: BP 108/59
[2019-12-27] MEDS: OMEGA-3/DHA/EPA/FISH OIL 1,000 MG CAPSULE PO SCH (08:39)
[2019-12-27] MEDS: DIVALPROEX SODIUM 500 MG DR TABLET PO SCH ×2 (08:39→20:45)
[2019-12-27] MEDS: OLANZapine 10 MG TABLET PO SCH ×2 (08:39→16:13)
[2019-12-27] MEDS: HYPROMELLOSE 0.5% 15 ML OPHTHALMIC SOLUTION OU PRN (16:13)
[2019-12-27 16:28] VITALS: BP 111/72
[2019-12-27] MEDS: LORazepam 2 MG TABLET PO PRN (17:39)
[2019-12-28 00:30] VITALS: BP 110/70
[2019-12-28] MEDS: FluPHENAZine HCL 10 MG TABLET PO SCH ×2 (06:29→16:10)
[2019-12-28 08:05] VITALS: BP 102/66
[2019-12-28] MEDS: DIVALPROEX SODIUM 500 MG DR TABLET PO SCH ×2 (08:20→20:07)
[2019-12-28] MEDS: OLANZapine 10 MG TABLET PO SCH ×2 (08:20→17:00)
[2019-12-28] MEDS: OMEGA-3/DHA/EPA/FISH OIL 1,000 MG CAPSULE PO SCH (08:20)
[2019-12-28 16:20] VITALS: BP 134/71
[2019-12-29] MEDS: FluPHENAZine HCL 10 MG TABLET PO SCH ×2 (06:08→16:33)
[2019-12-29 06:21] VITALS: BP 103/62
[2019-12-29 08:06] VITALS: BP 110/66
[2019-12-29] MEDS: OLANZapine 10 MG TABLET PO SCH ×2 (08:11→16:33)
[2019-12-29] MEDS: DIVALPROEX SODIUM 500 MG DR TABLET PO SCH ×2 (08:11→20:17)
[2019-12-29] MEDS: OMEGA-3/DHA/EPA/FISH OIL 1,000 MG CAPSULE PO SCH (08:11)
[2019-12-29 16:33] VITALS: BP 100/70
[2019-12-29] MEDS: LORazepam 2 MG TABLET PO PRN (16:33)
[2019-12-29] MEDS: ZOLPIDEM TARTRATE 10 MG TABLET PO PRN (20:17)
[2019-12-30 03:20] VITALS: BP 128/66
[2019-12-30] MEDS: FluPHENAZine HCL 10 MG TABLET PO SCH ×2 (06:12→16:36)
[2019-12-30 08:15] VITALS: BP 142/78
[2019-12-30] MEDS: DIVALPROEX SODIUM 500 MG DR TABLET PO SCH ×2 (08:25→20:13)
[2019-12-30] MEDS: OLANZapine 10 MG TABLET PO SCH ×2 (08:26→16:36)
[2019-12-30] MEDS: OMEGA-3/DHA/EPA/FISH OIL 1,000 MG CAPSULE PO SCH (08:26)
[2019-12-30 16:18] VITALS: BP 112/64
[2019-12-30] MEDS: ZOLPIDEM TARTRATE 10 MG TABLET PO PRN (20:13)
[2019-12-31 00:42] VITALS: BP 110/66
[2019-12-31] MEDS: FluPHENAZine HCL 10 MG TABLET PO SCH ×2 (06:40→16:58)
[2019-12-31] MEDS: OMEGA-3/DHA/EPA/FISH OIL 1,000 MG CAPSULE PO SCH (08:05)
[2019-12-31] MEDS: DIVALPROEX SODIUM 500 MG DR TABLET PO SCH ×2 (08:05→21:00)
[2019-12-31] MEDS: OLANZapine 10 MG TABLET PO SCH ×2 (08:05→16:58)
[2019-12-31 08:14] VITALS: BP 102/52
[2019-12-31 16:52] VITALS: BP 112/66
[2020-01-01 00:42] VITALS: BP 110/78
[2020-01-01] MEDS: FluPHENAZine HCL 10 MG TABLET PO SCH ×2 (06:25→16:06)
[2020-01-01 08:05] VITALS: BP 94/50
[2020-01-01] MEDS: OMEGA-3/DHA/EPA/FISH OIL 1,000 MG CAPSULE PO SCH (08:27)
[2020-01-01] MEDS: DIVALPROEX SODIUM 500 MG DR TABLET PO SCH ×2 (08:28→20:16)
[2020-01-01] MEDS: OLANZapine 10 MG TABLET PO SCH ×2 (08:28→17:34)
[2020-01-01] MEDS: LORazepam 2 MG TABLET PO PRN (15:14)
[2020-01-01 16:11] VITALS: BP 106/70
[2020-01-01] MEDS: IBUPROFEN 400 MG TABLET PO PRN (16:14)
[2020-01-01 17:14] VITALS: BP 113/76
[2020-01-01] MEDS: ALBUTEROL SULFATE HFA 90 MCG/PUFF 8 GM INHALER IH PRN (18:45)
[2020-01-01] MEDS: ZOLPIDEM TARTRATE 10 MG TABLET PO PRN (20:59)
[2020-01-02 01:25] VITALS: BP 105/70
[2020-01-02] MEDS: FluPHENAZine HCL 10 MG TABLET PO SCH ×2 (06:11→16:17)
[2020-01-02 08:05] VITALS: BP 109/59
[2020-01-02] MEDS: OMEGA-3/DHA/EPA/FISH OIL 1,000 MG CAPSULE PO SCH (08:29)
[2020-01-02] MEDS: OLANZapine 10 MG TABLET PO SCH ×2 (08:29→16:17)
[2020-01-02] MEDS: DIVALPROEX SODIUM 500 MG DR TABLET PO SCH ×2 (08:29→20:16)
[2020-01-02] MEDS: LORazepam 2 MG TABLET PO PRN (15:48)
[2020-01-02 16:00] VITALS: BP 111/74
[2020-01-02] MEDS: ACETAMINOPHEN 325 MG TABLET PO PRN (17:58)
[2020-01-02 18:04] VITALS: BP 118/73
[2020-01-03 05:55] VITALS: BP 100/58
[2020-01-03] MEDS: FluPHENAZine HCL 10 MG TABLET PO SCH ×2 (06:19→15:46)
[2020-01-03 08:09] VITALS: BP 122/83
[2020-01-03] MEDS: OMEGA-3/DHA/EPA/FISH OIL 1,000 MG CAPSULE PO SCH (08:16)
[2020-01-03] MEDS: OLANZapine 10 MG TABLET PO SCH ×2 (08:16→15:46)
[2020-01-03] MEDS: DIVALPROEX SODIUM 500 MG DR TABLET PO SCH ×2 (08:16→19:52)
[2020-01-03] MEDS: LORazepam 2 MG TABLET PO PRN (15:46)
[2020-01-03 16:04] VITALS: BP 103/60
[2020-01-03] MEDS: ALBUTEROL SULFATE HFA 90 MCG/PUFF 8 GM INHALER IH PRN (17:14)
[2020-01-04 05:46] VITALS: BP 118/71
[2020-01-04] MEDS: FluPHENAZine HCL 10 MG TABLET PO SCH ×2 (06:37→16:09)
[2020-01-04 08:20] VITALS: BP 100/58
[2020-01-04] MEDS: OMEGA-3/DHA/EPA/FISH OIL 1,000 MG CAPSULE PO SCH (08:38)
[2020-01-04] MEDS: DIVALPROEX SODIUM 500 MG DR TABLET PO SCH ×2 (08:38→21:21)
[2020-01-04] MEDS: OLANZapine 10 MG TABLET PO SCH ×2 (08:39→16:09)
[2020-01-04 16:14] VITALS: BP 108/65
[2020-01-04] MEDS: ALBUTEROL SULFATE HFA 90 MCG/PUFF 8 GM INHALER IH PRN (18:27)
[2020-01-04] MEDS: LORazepam 2 MG TABLET PO PRN (18:32)
[2020-01-04] MEDS: IBUPROFEN 400 MG TABLET PO PRN (18:32)
[2020-01-05 01:14] VITALS: BP 100/68
[2020-01-05] MEDS: FluPHENAZine HCL 10 MG TABLET PO SCH ×2 (06:36→16:50)
[2020-01-05] MEDS: DIVALPROEX SODIUM 500 MG DR TABLET PO SCH ×2 (08:09→20:22)
[2020-01-05] MEDS: OLANZapine 10 MG TABLET PO SCH ×2 (08:09→16:50)
[2020-01-05] MEDS: OMEGA-3/DHA/EPA/FISH OIL 1,000 MG CAPSULE PO SCH (08:10)
[2020-01-05 08:36] VITALS: BP 103/68
[2020-01-05 16:11] VITALS: BP 106/60
[2020-01-05] MEDS: ALBUTEROL SULFATE HFA 90 MCG/PUFF 8 GM INHALER IH PRN (16:21)
[2020-01-05] MEDS: LORazepam 2 MG TABLET PO PRN (18:11)
[2020-01-06 05:19] VITALS: BP 106/60
[2020-01-06] MEDS: FluPHENAZine HCL 10 MG TABLET PO SCH ×2 (06:44→16:07)
[2020-01-06] MEDS: OMEGA-3/DHA/EPA/FISH OIL 1,000 MG CAPSULE PO SCH (08:18)
[2020-01-06] MEDS: DIVALPROEX SODIUM 500 MG DR TABLET PO SCH ×2 (08:18→20:06)
[2020-01-06] MEDS: OLANZapine 10 MG TABLET PO SCH ×2 (08:18→16:07)
[2020-01-06 08:30] VITALS: BP 100/56
[2020-01-06] MEDS: LORazepam 2 MG TABLET PO PRN ×2 (14:56→20:06)
[2020-01-06 17:11] VITALS: BP 124/78
[2020-01-06 18:47] VITALS: BP 124/85
[2020-01-06] MEDS: ACETAMINOPHEN 325 MG TABLET PO PRN (18:47)
[2020-01-07 04:41] VITALS: BP 118/70
[2020-01-07] MEDS: FluPHENAZine HCL 10 MG TABLET PO SCH ×2 (05:45→16:42)
[2020-01-07] MEDS: OLANZapine 10 MG TABLET PO SCH ×2 (08:06→16:42)
[2020-01-07] MEDS: OMEGA-3/DHA/EPA/FISH OIL 1,000 MG CAPSULE PO SCH (08:06)
[2020-01-07] MEDS: DIVALPROEX SODIUM 500 MG DR TABLET PO SCH ×2 (08:06→20:12)
[2020-01-07 08:09] VITALS: BP 102/58
[2020-01-07 16:04] VITALS: BP 114/63
[2020-01-08 00:22] VITALS: BP 111/65
[2020-01-08] MEDS: FluPHENAZine HCL 10 MG TABLET PO SCH ×2 (06:13→16:28)
[2020-01-08 08:17] VITALS: BP 100/59
[2020-01-08] MEDS: OLANZapine 10 MG TABLET PO SCH ×2 (08:28→16:28)
[2020-01-08] MEDS: OMEGA-3/DHA/EPA/FISH OIL 1,000 MG CAPSULE PO SCH (08:28)
[2020-01-08] MEDS: DIVALPROEX SODIUM 500 MG DR TABLET PO SCH ×2 (08:28→20:30)
[2020-01-08 16:04] VITALS: BP 115/66
[2020-01-09 00:34] VITALS: BP 107/62
[2020-01-09] MEDS: FluPHENAZine HCL 10 MG TABLET PO SCH ×2 (06:23→16:26)
[2020-01-09 08:18] VITALS: BP 100/60
[2020-01-09] MEDS: OLANZapine 10 MG TABLET PO SCH ×2 (08:19→16:26)
[2020-01-09] MEDS: OMEGA-3/DHA/EPA/FISH OIL 1,000 MG CAPSULE PO SCH (08:19)
[2020-01-09] MEDS: DIVALPROEX SODIUM 500 MG DR TABLET PO SCH ×2 (08:19→20:17)
[2020-01-09 14:00] VITALS: BP 110/70
[2020-01-09] MEDS: LORazepam 2 MG TABLET PO PRN (14:01)
[2020-01-09 16:14] VITALS: BP 109/71
[2020-01-10 00:38] VITALS: BP 104/76
[2020-01-10] MEDS: FluPHENAZine HCL 10 MG TABLET PO SCH ×2 (06:18→16:03)
[2020-01-10] MEDS: OMEGA-3/DHA/EPA/FISH OIL 1,000 MG CAPSULE PO SCH (08:17)
[2020-01-10] MEDS: OLANZapine 10 MG TABLET PO SCH ×2 (08:17→16:03)
[2020-01-10] MEDS: DIVALPROEX SODIUM 500 MG DR TABLET PO SCH ×2 (08:17→20:17)
[2020-01-10 16:03] VITALS: BP 109/69
[2020-01-10] MEDS: HYPROMELLOSE 0.5% 15 ML OPHTHALMIC SOLUTION OU PRN (17:15)
[2020-01-11 05:08] VITALS: BP 102/68
[2020-01-11] MEDS: FluPHENAZine HCL 10 MG TABLET PO SCH ×2 (06:40→16:11)
[2020-01-11] MEDS: DIVALPROEX SODIUM 500 MG DR TABLET PO SCH ×2 (08:13→20:13)
[2020-01-11] MEDS: OLANZapine 10 MG TABLET PO SCH ×2 (08:13→17:03)
[2020-01-11] MEDS: OMEGA-3/DHA/EPA/FISH OIL 1,000 MG CAPSULE PO SCH (08:13)
[2020-01-11 08:22] VITALS: BP 102/57
[2020-01-11] MEDS: LORazepam 2 MG TABLET PO PRN (14:23)
[2020-01-11 16:07] VITALS: BP 103/64
[2020-01-11] MEDS: NICOTINE 14 MG/24 HOUR PATCH TD PRN (16:07)
[2020-01-11] MEDS: ZOLPIDEM TARTRATE 10 MG TABLET PO PRN (20:35)
[2020-01-12 00:18] VITALS: BP 100/69
[2020-01-12] MEDS: FluPHENAZine HCL 10 MG TABLET PO SCH ×2 (06:43→16:38)
[2020-01-12 08:33] VITALS: BP 106/61
[2020-01-12] MEDS: OMEGA-3/DHA/EPA/FISH OIL 1,000 MG CAPSULE PO SCH (09:09)
[2020-01-12] MEDS: DIVALPROEX SODIUM 500 MG DR TABLET PO SCH ×2 (09:09→20:13)
[2020-01-12] MEDS: OLANZapine 10 MG TABLET PO SCH ×2 (09:09→17:07)
[2020-01-12 16:15] VITALS: BP 110/68
[2020-01-12] MEDS: ZOLPIDEM TARTRATE 10 MG TABLET PO PRN (20:56)
[2020-01-13 00:13] VITALS: BP 102/72
[2020-01-13] MEDS: FluPHENAZine HCL 10 MG TABLET PO SCH ×2 (06:45→16:01)
[2020-01-13 08:11] VITALS: BP 103/64
[2020-01-13] MEDS: OLANZapine 10 MG TABLET PO SCH ×2 (08:32→16:00)
[2020-01-13] MEDS: DIVALPROEX SODIUM 500 MG DR TABLET PO SCH ×2 (08:32→20:29)
[2020-01-13] MEDS: OMEGA-3/DHA/EPA/FISH OIL 1,000 MG CAPSULE PO SCH (08:32)
[2020-01-13 16:16] VITALS: BP 100/60
[2020-01-14 00:50] VITALS: BP 102/69
[2020-01-14] MEDS: FluPHENAZine HCL 10 MG TABLET PO SCH ×2 (06:14→16:05)
[2020-01-14] MEDS: DIVALPROEX SODIUM 500 MG DR TABLET PO SCH ×2 (08:13→20:23)
[2020-01-14] MEDS: OLANZapine 10 MG TABLET PO SCH ×2 (08:13→16:05)
[2020-01-14] MEDS: OMEGA-3/DHA/EPA/FISH OIL 1,000 MG CAPSULE PO SCH (08:13)
[2020-01-14 08:14] VITALS: BP 104/66
[2020-01-14] MEDS: LORazepam 2 MG TABLET PO PRN (16:05)
[2020-01-14 16:06] VITALS: BP 102/63
[2020-01-14] MEDS: HYPROMELLOSE 0.5% 15 ML OPHTHALMIC SOLUTION OU PRN (17:23)
[2020-01-15 05:39] VITALS: BP 99/61
[2020-01-15] MEDS: FluPHENAZine HCL 10 MG TABLET PO SCH ×2 (06:09→16:21)
[2020-01-15 08:11] VITALS: BP 106/68
[2020-01-15] MEDS: DIVALPROEX SODIUM 500 MG DR TABLET PO SCH ×2 (08:17→20:25)
[2020-01-15] MEDS: OMEGA-3/DHA/EPA/FISH OIL 1,000 MG CAPSULE PO SCH (08:17)
[2020-01-15] MEDS: OLANZapine 10 MG TABLET PO SCH ×2 (08:17→16:21)
[2020-01-15 16:13] VITALS: BP 107/68
[2020-01-15] MEDS: LORazepam 2 MG TABLET PO PRN (16:21)
[2020-01-15] MEDS: HYPROMELLOSE 0.5% 15 ML OPHTHALMIC SOLUTION OU PRN (17:25)
[2020-01-16 03:42] VITALS: BP 101/62
[2020-01-16] MEDS: FluPHENAZine HCL 10 MG TABLET PO SCH ×2 (06:33→16:35)
[2020-01-16 07:57] VITALS: BP 104/69
[2020-01-16 08:00] VITALS: BP 104/69
[2020-01-16] MEDS: OMEGA-3/DHA/EPA/FISH OIL 1,000 MG CAPSULE PO SCH (08:10)
[2020-01-16] MEDS: DIVALPROEX SODIUM 500 MG DR TABLET PO SCH ×2 (08:10→20:12)
[2020-01-16] MEDS: OLANZapine 10 MG TABLET PO SCH ×2 (08:10→16:35)
[2020-01-16 16:03] VITALS: BP 139/72
[2020-01-16] MEDS: ZOLPIDEM TARTRATE 10 MG TABLET PO PRN (20:12)
[2020-01-17 00:02] VITALS: BP 119/63
[2020-01-17] MEDS: LORazepam 2 MG TABLET PO PRN ×2 (00:08→15:55)
[2020-01-17] MEDS: FluPHENAZine HCL 10 MG TABLET PO SCH ×2 (06:45→15:54)
[2020-01-17] MEDS: DIVALPROEX SODIUM 500 MG DR TABLET PO SCH ×2 (08:07→20:15)
[2020-01-17] MEDS: OMEGA-3/DHA/EPA/FISH OIL 1,000 MG CAPSULE PO SCH (08:07)
[2020-01-17] MEDS: OLANZapine 10 MG TABLET PO SCH ×2 (08:07→15:54)
[2020-01-17 08:16] VITALS: BP 100/56
[2020-01-17 16:03] VITALS: BP 109/64
[2020-01-17] MEDS: ZOLPIDEM TARTRATE 10 MG TABLET PO PRN (20:20)
[2020-01-18 00:22] VITALS: BP 105/67
[2020-01-18] MEDS: FluPHENAZine HCL 10 MG TABLET PO SCH ×2 (06:29→16:11)
[2020-01-18 08:21] VITALS: BP 100/59
[2020-01-18] MEDS: OMEGA-3/DHA/EPA/FISH OIL 1,000 MG CAPSULE PO SCH (08:26)
[2020-01-18] MEDS: DIVALPROEX SODIUM 500 MG DR TABLET PO SCH ×2 (08:26→20:23)
[2020-01-18] MEDS: OLANZapine 10 MG TABLET PO SCH ×2 (08:26→16:12)
[2020-01-19 01:00] VITALS: BP 101/62
[2020-01-19] MEDS: FluPHENAZine HCL 10 MG TABLET PO SCH ×2 (06:30→16:55)
[2020-01-19] MEDS: OMEGA-3/DHA/EPA/FISH OIL 1,000 MG CAPSULE PO SCH (08:13)
[2020-01-19] MEDS: OLANZapine 10 MG TABLET PO SCH ×2 (08:13→16:55)
[2020-01-19] MEDS: DIVALPROEX SODIUM 500 MG DR TABLET PO SCH ×2 (08:13→20:05)
[2020-01-19 08:31] VITALS: BP 104/66
[2020-01-19] MEDS: IBUPROFEN 400 MG TABLET PO PRN (16:55)
[2020-01-19 17:20] VITALS: BP 114/69
[2020-01-19] MEDS: HYPROMELLOSE 0.5% 15 ML OPHTHALMIC SOLUTION OU PRN (18:33)
[2020-01-20 00:22] VITALS: BP 104/60
[2020-01-20] MEDS: FluPHENAZine HCL 10 MG TABLET PO SCH ×2 (06:20→16:56)
[2020-01-20 08:11] VITALS: BP 108/69
[2020-01-20] MEDS: DIVALPROEX SODIUM 500 MG DR TABLET PO SCH ×2 (08:17→20:08)
[2020-01-20] MEDS: OMEGA-3/DHA/EPA/FISH OIL 1,000 MG CAPSULE PO SCH (08:17)
[2020-01-20] MEDS: OLANZapine 10 MG TABLET PO SCH ×2 (08:17→16:56)
[2020-01-20 16:15] VITALS: BP 139/86
[2020-01-20] MEDS: LORazepam 2 MG TABLET PO PRN (18:13)
[2020-01-20] MEDS: HALOPERIDOL 5 MG TABLET PO PRN (18:13)
[2020-01-21 05:32] VITALS: BP 100/56
[2020-01-21 05:33] VITALS: BP 115/63
[2020-01-21] MEDS: FluPHENAZine HCL 10 MG TABLET PO SCH ×2 (06:32→16:16)
[2020-01-21] MEDS: OMEGA-3/DHA/EPA/FISH OIL 1,000 MG CAPSULE PO SCH (08:13)
[2020-01-21] MEDS: OLANZapine 10 MG TABLET PO SCH ×2 (08:13→16:16)
[2020-01-21] MEDS: DIVALPROEX SODIUM 500 MG DR TABLET PO SCH ×2 (08:13→20:23)
[2020-01-21 08:27] VITALS: BP 103/60
[2020-01-21 16:06] VITALS: BP 100/66
[2020-01-21] MEDS: LORazepam 2 MG TABLET PO PRN (19:04)
[2020-01-21] MEDS: NICOTINE 14 MG/24 HOUR PATCH TD PRN (20:23)
[2020-01-21] MEDS: ZOLPIDEM TARTRATE 10 MG TABLET PO PRN (20:23)
[2020-01-22 00:50] VITALS: BP 101/68
[2020-01-22] MEDS: FluPHENAZine HCL 10 MG TABLET PO SCH ×2 (06:08→16:17)
[2020-01-22] MEDS: OMEGA-3/DHA/EPA/FISH OIL 1,000 MG CAPSULE PO SCH (08:07)
[2020-01-22] MEDS: OLANZapine 10 MG TABLET PO SCH ×2 (08:07→16:17)
[2020-01-22] MEDS: DIVALPROEX SODIUM 500 MG DR TABLET PO SCH ×2 (08:07→20:17)
[2020-01-22 08:32] VITALS: BP 103/61
[2020-01-22 16:05] VITALS: BP 118/63
[2020-01-23 05:26] VITALS: BP 100/58
[2020-01-23] MEDS: FluPHENAZine HCL 10 MG TABLET PO SCH ×2 (06:01→17:05)
[2020-01-23] MEDS: DIVALPROEX SODIUM 500 MG DR TABLET PO SCH ×2 (07:59→20:10)
[2020-01-23] MEDS: OLANZapine 10 MG TABLET PO SCH ×2 (07:59→17:05)
[2020-01-23] MEDS: OMEGA-3/DHA/EPA/FISH OIL 1,000 MG CAPSULE PO SCH (07:59)
[2020-01-23 08:12] VITALS: BP 102/60
[2020-01-23 16:28] VITALS: BP 100/67
[2020-01-24 00:55] VITALS: BP 102/69
[2020-01-24] MEDS: FluPHENAZine HCL 10 MG TABLET PO SCH ×2 (06:55→16:06)
[2020-01-24] MEDS: DIVALPROEX SODIUM 500 MG DR TABLET PO SCH ×2 (08:16→19:59)
[2020-01-24] MEDS: OMEGA-3/DHA/EPA/FISH OIL 1,000 MG CAPSULE PO SCH (08:16)
[2020-01-24] MEDS: OLANZapine 10 MG TABLET PO SCH ×2 (08:16→16:06)
[2020-01-24 08:21] VITALS: BP 101/64
[2020-01-24 16:29] VITALS: BP 123/79
[2020-01-25 05:43] VITALS: BP 125/77
[2020-01-25] MEDS: FluPHENAZine HCL 10 MG TABLET PO SCH ×2 (06:18→17:26)
[2020-01-25] MEDS: OMEGA-3/DHA/EPA/FISH OIL 1,000 MG CAPSULE PO SCH (08:12)
[2020-01-25] MEDS: DIVALPROEX SODIUM 500 MG DR TABLET PO SCH ×2 (08:12→20:38)
[2020-01-25] MEDS: OLANZapine 10 MG TABLET PO SCH ×2 (08:12→17:50)
[2020-01-25 08:16] VITALS: BP 112/66
[2020-01-25] MEDS: LORazepam 2 MG TABLET PO PRN ×2 (11:34→17:26)
[2020-01-25 16:16] VITALS: BP 116/74
[2020-01-26 06:17] VITALS: BP 109/65
[2020-01-26] MEDS: FluPHENAZine HCL 10 MG TABLET PO SCH ×2 (06:27→16:17)
[2020-01-26] MEDS: DIVALPROEX SODIUM 500 MG DR TABLET PO SCH ×2 (08:09→20:30)
[2020-01-26] MEDS: OLANZapine 10 MG TABLET PO SCH ×2 (08:10→16:18)
[2020-01-26] MEDS: OMEGA-3/DHA/EPA/FISH OIL 1,000 MG CAPSULE PO SCH (08:10)
[2020-01-26 08:36] VITALS: BP 102/65
[2020-01-26] MEDS: LORazepam 2 MG TABLET PO PRN (17:18)
[2020-01-26] MEDS: ALBUTEROL SULFATE HFA 90 MCG/PUFF 8 GM INHALER IH PRN (17:19)
[2020-01-26 19:16] VITALS: BP 126/74
[2020-01-27 01:27] VITALS: BP 112/70
[2020-01-27] MEDS: FluPHENAZine HCL 10 MG TABLET PO SCH ×2 (06:31→16:09)
[2020-01-27 08:20] VITALS: BP 102/66
[2020-01-27] MEDS: OMEGA-3/DHA/EPA/FISH OIL 1,000 MG CAPSULE PO SCH (08:35)
[2020-01-27] MEDS: DIVALPROEX SODIUM 500 MG DR TABLET PO SCH ×2 (08:35→20:45)
[2020-01-27] MEDS: OLANZapine 10 MG TABLET PO SCH ×2 (08:35→16:09)
[2020-01-27 16:04] VITALS: BP 128/52
[2020-01-28 02:20] VITALS: BP 123/62
[2020-01-28] MEDS: FluPHENAZine HCL 10 MG TABLET PO SCH ×2 (06:37→16:02)
[2020-01-28 08:12] VITALS: BP 103/66
[2020-01-28] MEDS: DIVALPROEX SODIUM 500 MG DR TABLET PO SCH ×2 (08:56→20:11)
[2020-01-28] MEDS: OMEGA-3/DHA/EPA/FISH OIL 1,000 MG CAPSULE PO SCH (08:56)
[2020-01-28] MEDS: OLANZapine 10 MG TABLET PO SCH ×2 (08:56→16:02)
[2020-01-28 13:38] VITALS: BP 110/74
[2020-01-28] MEDS: LORazepam 2 MG TABLET PO PRN (13:38)
[2020-01-28] MEDS: HALOPERIDOL 5 MG TABLET PO PRN (16:02)
[2020-01-28 16:09] VITALS: BP 110/69
[2020-01-28] MEDS: HYPROMELLOSE 0.5% 15 ML OPHTHALMIC SOLUTION OU PRN (16:22)
[2020-01-29 03:48] VITALS: BP 112/60
[2020-01-29] MEDS: FluPHENAZine HCL 10 MG TABLET PO SCH ×2 (06:06→16:28)
[2020-01-29] MEDS: DIVALPROEX SODIUM 500 MG DR TABLET PO SCH ×2 (08:05→20:25)
[2020-01-29] MEDS: OLANZapine 10 MG TABLET PO SCH ×2 (08:05→16:28)
[2020-01-29] MEDS: OMEGA-3/DHA/EPA/FISH OIL 1,000 MG CAPSULE PO SCH (08:05)
[2020-01-29 08:09] VITALS: BP 103/64
[2020-01-29 16:10] VITALS: BP 102/65
[2020-01-29] MEDS: LORazepam 2 MG TABLET PO PRN (16:28)
[2020-01-29] MEDS: ZOLPIDEM TARTRATE 10 MG TABLET PO PRN (20:25)
[2020-01-30] MEDS: FluPHENAZine HCL 10 MG TABLET PO SCH ×2 (05:57→16:10)
[2020-01-30 06:34] VITALS: BP 100/58
[2020-01-30 08:22] VITALS: BP 100/61
[2020-01-30] MEDS: OLANZapine 10 MG TABLET PO SCH ×2 (08:36→16:10)
[2020-01-30] MEDS: OMEGA-3/DHA/EPA/FISH OIL 1,000 MG CAPSULE PO SCH (08:36)
[2020-01-30] MEDS: DIVALPROEX SODIUM 500 MG DR TABLET PO SCH ×2 (08:36→20:25)
[2020-01-30 14:05] VITALS: BP 114/74
[2020-01-30] MEDS: LORazepam 2 MG TABLET PO PRN (14:07)
[2020-01-30 16:02] VITALS: BP 110/66
[2020-01-31 03:34] VITALS: BP 112/63
[2020-01-31] MEDS: FluPHENAZine HCL 10 MG TABLET PO SCH ×2 (06:15→16:34)
[2020-01-31 08:12] VITALS: BP 109/61
[2020-01-31] MEDS: OLANZapine 10 MG TABLET PO SCH ×2 (08:36→16:34)
[2020-01-31] MEDS: DIVALPROEX SODIUM 500 MG DR TABLET PO SCH ×2 (08:36→20:07)
[2020-01-31] MEDS: OMEGA-3/DHA/EPA/FISH OIL 1,000 MG CAPSULE PO SCH (08:36)
[2020-01-31] MEDS: LORazepam 2 MG TABLET PO PRN ×2 (13:10→18:29)
[2020-01-31 16:31] VITALS: BP 113/73
[2020-01-31] MEDS: HYPROMELLOSE 0.5% 15 ML OPHTHALMIC SOLUTION OU PRN (18:02)
[2020-01-31] MEDS: ZOLPIDEM TARTRATE 10 MG TABLET PO PRN (20:07)
[2020-02-01 06:17] VITALS: BP 101/70
[2020-02-01] MEDS: FluPHENAZine HCL 10 MG TABLET PO SCH ×2 (06:27→16:05)
[2020-02-01 08:13] VITALS: BP 109/68
[2020-02-01] MEDS: OLANZapine 10 MG TABLET PO SCH ×2 (08:39→16:05)
[2020-02-01] MEDS: OMEGA-3/DHA/EPA/FISH OIL 1,000 MG CAPSULE PO SCH (08:39)
[2020-02-01] MEDS: DIVALPROEX SODIUM 500 MG DR TABLET PO SCH ×2 (08:40→20:18)
[2020-02-01] MEDS: LORazepam 2 MG TABLET PO PRN (10:32)
[2020-02-01] MEDS ORDERED: TUBERCULIN, PURIFIED PROTEIN DERIVATIVE 5 TU/0.1 ML SYRINGE ID ONE (15:00)
[2020-02-01 16:05] VITALS: BP 109/66
[2020-02-02 00:20] VITALS: BP 102/68
[2020-02-02] MEDS: FluPHENAZine HCL 10 MG TABLET PO SCH ×2 (06:25→16:42)
[2020-02-02] MEDS: OLANZapine 10 MG TABLET PO SCH ×2 (10:11→16:42)
[2020-02-02] MEDS: DIVALPROEX SODIUM 500 MG DR TABLET PO SCH ×2 (10:11→20:28)
[2020-02-02] MEDS: OMEGA-3/DHA/EPA/FISH OIL 1,000 MG CAPSULE PO SCH (10:11)
[2020-02-02 14:02] VITALS: BP 131/72
[2020-02-02] MEDS: LORazepam 2 MG TABLET PO PRN (15:47)
[2020-02-02] MEDS: HALOPERIDOL 5 MG TABLET PO PRN (15:53)
[2020-02-02 16:00] VITALS: BP 117/76
[2020-02-02] MEDS: ZOLPIDEM TARTRATE 10 MG TABLET PO PRN (20:28)
[2020-02-03 03:53] VITALS: BP 102/65
[2020-02-03] MEDS: FluPHENAZine HCL 10 MG TABLET PO SCH ×2 (06:20→15:59)
[2020-02-03 08:12] VITALS: BP 100/59
[2020-02-03] MEDS: OLANZapine 10 MG TABLET PO SCH ×2 (08:32→15:59)
[2020-02-03] MEDS: OMEGA-3/DHA/EPA/FISH OIL 1,000 MG CAPSULE PO SCH (08:32)
[2020-02-03] MEDS: DIVALPROEX SODIUM 500 MG DR TABLET PO SCH ×2 (08:32→20:03)
[2020-02-03] MEDS: HALOPERIDOL 5 MG TABLET PO PRN ×2 (13:45→17:45)
[2020-02-03 16:04] VITALS: BP 119/71
[2020-02-03] MEDS: LORazepam 2 MG TABLET PO PRN (16:39)
[2020-02-04 06:19] VITALS: BP 101/65
[2020-02-04] MEDS: FluPHENAZine HCL 10 MG TABLET PO SCH ×2 (06:55→16:18)
[2020-02-04 08:22] VITALS: BP 100/59
[2020-02-04] MEDS: OMEGA-3/DHA/EPA/FISH OIL 1,000 MG CAPSULE PO SCH (09:19)
[2020-02-04] MEDS: DIVALPROEX SODIUM 500 MG DR TABLET PO SCH ×2 (09:19→20:29)
[2020-02-04] MEDS: OLANZapine 10 MG TABLET PO SCH ×2 (09:20→16:18)
[2020-02-04] MEDS: LORazepam 2 MG TABLET PO PRN (09:20)
[2020-02-04] MEDS: HALOPERIDOL 5 MG TABLET PO PRN (09:20)
[2020-02-04 16:06] VITALS: BP 105/63
[2020-02-05 01:04] VITALS: BP 101/69
[2020-02-05] MEDS: FluPHENAZine HCL 10 MG TABLET PO SCH (06:02)
[2020-02-05 08:10] VITALS: BP 109/72
[2020-02-05] MEDS: OLANZapine 10 MG TABLET PO SCH (08:11)
[2020-02-05] MEDS: OMEGA-3/DHA/EPA/FISH OIL 1,000 MG CAPSULE PO SCH (08:11)
[2020-02-05] MEDS: DIVALPROEX SODIUM 500 MG DR TABLET PO SCH (08:11)
== END 2020-02-05 14:15 | disposition short-term general hospital (02) | DRG 750 ==
LOC: EMS 11:26 → B3A 14:33
PROVIDERS: ADMIT Psychiatry & Neurology Child & Adolescent Psychiatry; ATTEND Psychiatry & Neurology Child & Adolescent Psychiatry
DX: F25.0 Schizoaffective disorder, bipolar type (principal); D64.9 Anemia, unspecified; F10.10 Alcohol abuse, uncomplicated; E87.6 Hypokalemia; F41.9 Anxiety disorder, unspecified; G40.909 Epilepsy, unspecified, not intractable, without status epilepticus; F17.210 Nicotine dependence, cigarettes, uncomplicated; F15.10 Other stimulant abuse, uncomplicated; F12.10 Cannabis abuse, uncomplicated; Z59.0 Homelessness
CPT/HCPCS: 84439; 84443; 87081; G0480; J3535; Q0162

== ENCOUNTER 2024-05-25 19:59 | Emergency (ER) | payer MEDICAID, OTHER ==
[~2024-05-25] VITALS: Ht 165.1 cm; Wt 90.9 kg
[~2024-05-25 19:59] MED LIST changes: -FLUP10 PO; +FLUP10TA28 PO; -OLAN10TA3 PO; +OLAN10TA74 PO
[2024-05-25 21:27] LABS: BASOPHILS % (AUTO) 0.3 % (0.0-2.0); EOSINOPHILS % (AUTO) 0.9 % (1.0-6.0); HEMATOCRIT 37.6 % (36-46); HEMOGLOBIN 11.7 g/dL (12.0-16.0); LYMPHOCYTES % (AUTO) 16.3 % (22.0-44.0); MEAN CORPUSCULAR HGB CONC 31.2 G/dL (31.0-37.0); MEAN CORPUSCULAR VOLUME 80 fL (80-100); MONOCYTES # (AUTO) 0.7 K/uL (0.1-1.0); MONOCYTES % (AUTO) 5.7 % (2.0-9.0); NEUTROPHILS # (AUTO) 9.2 K/uL (1.8-7.7); NEUTROPHILS % (AUTO) 76.8 % (40.0-70.0); PLATELET COUNT (AUTO) 218 K/uL (150-450); RED BLOOD CELL COUNT(AUTO) 4.69 MIL/uL (4.00-5.20); RED CELL DISTRIBUTION WIDTH 17.7 % (11.5-14.5)
[2024-05-25 21:37] LABS: ANION GAP 5 mmol/L (8-16); CALCIUM, TOTAL 8.4 mg/dL (8.8-10.5); CARBON DIOXIDE 27 mmol/L (22-29); CHLORIDE 109 mmol/L (98-107); CREATININE 0.61 mg/dL (0.60-1.30); GLOMERULAR FILTR. RATE CALC > 60 mL/min (>60); GLUCOSE,RANDOM 83 mg/dL (70-110); POTASSIUM 4.1 mmol/L (3.5-5.1); SODIUM SERUM 141 mmol/L (136-145); UREA NITROGEN, BLOOD 9 mg/dL (7-18)
[2024-05-25 21:39] LABS: B-TYPE NATRIURETIC PEPTIDE 9 pg/mL (0-100)
[2024-05-25 21:44] LABS: ALCOHOL, BLOOD (SERUM) < 3 mg/dL (0-10)
[2024-05-25 21:46] LABS: TROPONIN I-HIGH SENSITIVITY 8 ng/L (<51)
[2024-05-25 22:14] LABS: CREATINE KINASE, TOTAL ONLY 75 U/L (26-192)
[2024-05-25 22:59] VITALS: BP 109/64; PULSE 97; RESP 18; O2SAT 97
== END 2024-05-26 01:16 | disposition home or self-care (01) ==
LOC: EMS 19:59
DX: T40.411A Poisoning by fentanyl or fentanyl analogs, accidental (unintentional), initial encounter (principal); R11.0 Nausea; D64.9 Anemia, unspecified; R07.89 Other chest pain; R44.0 Auditory hallucinations; Y92.89 Other specified places as the place of occurrence of the external cause
CPT/HCPCS: 99285; 71045; 80048; 82550; 83880; 84484; 84703; 85025; 36415; 93005; G0480